=== PATIENT | female | born 1925 | race Caucasian/White ===

== ENCOUNTER 2016-05-27 11:09 | Emergency (ER) | payer MEDICARE, OTHER ==
[~2016-05-27] VITALS: Ht 157.5 cm; Wt 65.0 kg
[~2016-05-27 11:09] MED LIST: ACET325T45 PO; AMLO5TAB4 PO; ASPI-664 PO; CARI350T29 PO; DOCU-144 PO; EPIN5DRO OP; FURO40TA4 PO; GABA300C16 PO; METO-448 PO; OMEP20CA16 PO; TRAM50TA2 PO; ZOLP5TAB7 PO
[2016-05-27 11:13] VITALS: Ht 157.5 cm; Wt 65.0 kg
[2016-05-27] MEDS ORDERED: SOD CHLORIDE 0.9% 500 ML IV STA (11:22)
[2016-05-27 12:02] LABS: ADD SCAN DIFF NO
[2016-05-27 12:05] LABS: HEMATOCRIT 44.4 % (37.0-47.0); HEMOGLOBIN 14.1 g/dl (12.0-16.0); LYMPHOCYTES # 0.8 10^3/ul (0.8-2.9); LYMPHOCYTES % 18.8 % (15.0-51.0); MEAN CORPUSCULAR HEMOGLOBIN 30.5 pg (29.0-33.0); MEAN CORPUSCULAR HGB CONC 31.8 g/dl (32.0-37.0); MEAN CORPUSCULAR VOLUME 96.1 fl (82.0-101.0); MEAN PLATELET VOLUME 10.3 fl (7.4-10.4); MONOCYTE # 0.4 10^3/ul (0.3-0.9); MONOCYTES % 9.1 % (0.0-11.0); NEUTROPHIL # 2.9 10^3/ul (1.6-7.5); NEUTROPHILS % 71.6 % (39.0-77.0); PLATELET COUNT 107 10^3/UL (140-415); RED BLOOD COUNT 4.62 10^6/ul (4.20-5.40); RED CELL DISTRIBUTION WIDTH 12.3 % (11.5-14.5); WHITE BLOOD COUNT 4.1 10^3/ul (4.8-10.8)
[2016-05-27 12:22] LABS: POTASSIUM 3.8 mmol/L (3.5-5.1)
[2016-05-27 12:24] LABS: ALBUMIN/GLOBULIN RATIO 1.08; BILIRUBIN,INDIRECT 0.5 mg/dl (0-1.1); BILIRUBIN,TOTAL 0.5 mg/dl (0.2-1.3); CREATININE 0.68 mg/dl (0.44-1.00); TOTAL PROTEIN 7.7 g/dl (6.1-8.1)
[2016-05-27 12:25] LABS: CALCIUM 9.6 mg/dl (8.4-10.2)
[2016-05-27] MEDS ORDERED: IODIXANOL LOCM 100 ML BTL ONE (12:49)
[2016-05-27] MEDS ORDERED: SOD CHLORIDE 0.9% 100 ML ONE (12:49)
--- NOTE | 2016-05-27 13:27 | RADRPT ---
PROCEDURE: CT Abdomen and Pelvis with contrast. CLINICAL INDICATION: Fall, right-sided pain TECHNIQUE: CT of the abdomen and pelvis was performed on a multi-detector scanner following the un complicated IV administration of 100 cc of Visipaque 320. Coronal and sagittal images were reformat sophie from the axial data set. One or more of the following dose reduction techniques were used: auto mated exposure control, adjustment of the mA and/or kV according to patient size, use of iterative reconstruction technique. CTDI = 11.11 mGy. DLP = 579.58 mGy-cm. COMPARISON: None. FINDINGS: CT abdomen: There is trace right pleural fluid. The heart size is normal, without pericardial effusion. Dixon ry arterial calcifications are present. Liver demonstrates scattered small benign cysts. Cholelith iasis is noted without evidence for cholecystitis. Biliary tree, pancreas, spleen, adrenal glands a nd kidneys are unremarkable except for benign renal cysts. Large hiatal hernia is present. There is no abdominal aortic aneurysm or dissection. Aortic vascular calcifications are present. T here is no retroperitoneal lymphadenopathy. The nati hepatis region is clear. CT pelvis: There is no bowel obstruction, free intraperitoneal air or hemoperitoneum. Scattered colonic divert icula are noted without diverticulitis. There is no appendicitis or colitis. Urinary bladder is gr ossly unremarkable. Uterus is surgically absent. No pelvic mass, free fluid or lymphadenopathy is identified. Osteopenia is noted. The patient is status post bilateral hip replacement. 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 There is minimally displaced acute fracture of the right ninth rib laterally. There is chronic moderate compression deformity of T12. No osteolytic or osteoblastic lesion is identified. IMPRESSION: 1. Minimally displaced acute fracture of the right ninth rib laterally. 2. No other evidence of acute traumatic injury is seen. 3. Nonspecific small amount of low-density right pleural fluid is present. 4. Large hiatal hernia is noted. 5. 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 6. Cholelithiasis is noted without evidence for cholecystitis. RPTAT: PP .Gumaro De Los Santos MD, Date Time Electronically viewed and signed by .Gumaro De Los Santos MD, on 05/27/2016 13:27 .R/
--- NOTE | 2016-05-27 13:34 | ERD ---
ER Documentation Chief Complaint Date/Time DATE: 05/27/16 TIME: 13:30 Chief Complaint LEFT RIB PAIN AFTER A [facility] HPI This is an 89-year-old female who presents to the emergency room for evaluation of right-sided rib pain. The history is obtained from the patient's caregiver who is at bedside and states that this patient had a mechanical fall approximately 3 days ago where she hit the side of her body on the edge of a doorway. She had no head injury or loss of consciousness. The patient states that the pain is a sharp pain worse with trunk movement. She denies any shortness of breath, diaphoresis, nausea or vomiting associated with this. ROS All systems reviewed and are negative except as per history of present illness. Medications Home Meds Reported Medications Amlodipine Besylate* (Norvasc*) 5 Mg Tablet, 5 MG PO DAILY, TAB 06/29/14 Docusate Sodium* (Colace*) 100 Mg Capsule, 100 MG PO QHS, CAP 06/29/14 Zolpidem Tartrate* (Zolpidem Tartrate*) 5 Mg Tablet, 5 MG PO HS Y, TAB 06/29/14 Gabapentin* (Gabapentin*) 300 Mg Capsule, 300 MG PO QHS, CAP 06/29/14 Aspirin (Low Dose Aspirin) 81 Mg Tablet.dr, 81 MG PO DAILY 06/29/14 Tramadol HCl (Tramadol HCl) 50 Mg Tab, 50-100 MG PO Q6, TAB 06/29/14 Furosemide* (Furosemide*) 40 Mg Tablet, 40 MG PO DAILY, TAB 06/29/14 Metoprolol Tartrate* (Lopressor*) 25 Mg Tab, 25 MG PO BID, TAB 06/29/14 Carisoprodol* (Carisoprodol*) 350 Mg Tablet, 350 MG PO QID, TAB 06/29/14 Omeprazole* (Omeprazole*) 20 Mg Capsule.dr, 20 MG PO DAILY, CAP 06/29/14 Epinastine Hcl (Elestat) 5 Ml Drops, 1 DROP OP BID 06/29/14 Acetaminophen* (Acetaminophen*) 325 Mg Tablet, 650 MG PO Q4H Y for PAIN, TAB 06/29/14 Allergies Allergies: Coded Allergies: No Known Allergy (Unverified , 06/29/14) PMhx/Soc History of Surgery: No Anesthesia Reaction: No Hx Neurological Disorder: No Hx Respiratory Disorders: No Hx Cardiac Disorders: No Hx Psychiatric Problems: No Hx Miscellaneous Medical Probl: Yes Hx Alcohol Use: No Hx Substance Use: No Hx Tobacco Use: No Smoking Status: Never smoker Physical Exam Vitals Vital Signs Date Time Temp Pulse Resp B/P Pulse Ox O2 Delivery O2 Flow Rate FiO2 05/27/16 11:13 98.1 77 18 150/77 99 Physical Exam INITIAL VITAL SIGNS: Reviewed by me GENERAL: The patient is well developed and appropriate for usual state of health in no apparent distress HEENT: Pupils equal, round, and reactive to light. EOMI. There is no scleral icterus. NECK: C-spine is soft and supple, there is no meningismus. There is no cervical lymphadenopathy. LUNGS: Clear to auscultation bilaterally. There are no rales, wheezes or rhonchi. HEART: Regular rate and rhythm, no murmurs, clicks, rubs or gallops. ABDOMEN: Soft, non-tender, non-distended. There are bowel sounds in all four quadrants. No rebound or guarding. EXTREMITIES: There is no peripheral cyanosis or edema. No focal swelling or erythema. NEUROLOGICAL: The patient moves all four extremities with 5/5 strength. Cranial nerves II - XII are intact. Normal gait. Alert and oriented SKIN: There is no apparent rash or petechiae. Musculoskeletal: Tender to palpation of the right lateral chest wall, no paradoxical chest wall movement, no ecchymosis. HEME/LYMPHATIC: There is no evidence of excessive bruising or lymphedema. PSYCHIATRIC: The patient does not appear anxious or depressed. Result Diagram: 05/27/16 1143 05/27/16 1143 Results 24 hrs Laboratory Tests Test 05/27/16 11:43 White Blood Count 4.110^3/ul Red Blood Count 4.6210^6/ul Hemoglobin 14.1g/dl Hematocrit 44.4% Mean Corpuscular Volume 96.1fl Mean Corpuscular Hemoglobin 30.5pg Mean Corpuscular Hemoglobin Concent 31.8g/dl Red Cell Distribution Width 12.3% Platelet Count 91987^3/UL Mean Platelet Volume 10.3fl Neutrophils % 71.6% Lymphocytes % 18.8% Monocytes % 9.1% Eosinophils % 0.0% Basophils % 0.0% Nucleated Red Blood Cells % 0.0/100WBC Neutrophils # 2.910^3/ul Lymphocytes # 0.810^3/ul Monocytes # 0.410^3/ul Eosinophils # 0.010^3/ul Basophils # 0.010^3/ul Nucleated Red Blood Cells # 0.010^3/ul Sodium Level 140mmol/L Potassium Level 3.8mmol/L Chloride Level 102mmol/L Carbon Dioxide Level 26mmol/L Anion Gap 16 Blood Urea Nitrogen 13mg/dl Creatinine 0.68mg/dl Glucose Level 151mg/dl Calcium Level 9.6mg/dl Total Bilirubin 0.5mg/dl Direct Bilirubin 0.00mg/dl Indirect Bilirubin 0.5mg/dl Aspartate Amino Transf (AST/SGOT) 20IU/L Alanine Aminotransferase (ALT/SGPT) 11IU/L Alkaline Phosphatase 77IU/L Total Protein 7.7g/dl Albumin 4.0g/dl Globulin 3.70g/dl Albumin/Globulin Ratio 1.08 Lipase 56U/L Current Medications Medications (Trade) Dose Ordered Sig/Jaime Route PRN Reason Start Time Stop Time Status Last Admin Dose Admin Sodium Chloride (NS) 500 ml @ 500 mls/hr Q1H STAT IV 05/27/16 11:22 05/27/16 12:21 DC 05/27/16 12:16 IV Flush 10 ml 10 ml STK-MED ONCE .ROUTE 05/27/16 12:49 05/27/16 12:50 DC 05/27/16 13:11 Sodium Chloride (NS) 100 ml @ ud STK-MED ONCE .ROUTE 05/27/16 12:49 05/27/16 12:50 DC 05/27/16 13:12 Iodixanol (Visipaque Locm) 100 ml STK-MED ONCE .ROUTE 05/27/16 12:49 05/27/16 12:50 DC 05/27/16 13:12 Procedures/MDM CT abdomen pelvis with IV contrast: 1. Minimally displaced acute fracture of the right ninth rib laterally. 2. No other evidence of acute traumatic injury is seen. 3. Nonspecific small amount of low-density right pleural fluid is present. 4. Large hiatal hernia is noted. 5. 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 6. Cholelithiasis is noted without evidence for cholecystitis. This 89-year-old female presents to the emergency room for evaluation of right- sided rib pain. When I evaluated her she was tender on that side, she had no paradoxical chest wall movement. The patient recently took tramadol before coming to the emergency room, less than 30 minutes ago. She was hemodynamically stable and did not complain of chest pain. I did obtain a CT of the abdomen pelvis with contrast to rule out any organ injury as the patient is a frail-appearing elderly female. CT does reveal minimally displaced acute fracture of the right ninth rib laterally. This is consistent with the patient' s history and presentation. The patient was given Motrin in the emergency room , will be discharged home with a prescription for Motrin and instructions to take tramadol only as needed for pain. Departure Diagnosis: Primary Impression: Fracture of rib of right side Additional Impression: Chest wall contusion Condition: Stable JAGDISH VARMA DO May 27, 2016 13:34
[2016-05-27] MEDS ORDERED: IBUP400T22 PO (13:35)
[2016-05-27] MEDS ORDERED: IBUPROFEN 200 MG TAB PO ONE (14:00)
== END 2016-05-27 14:01 | disposition home or self-care (01) ==
LOC: E/R 11:09
DX: S22.31XA Fracture of one rib, right side, initial encounter for closed fracture (principal); S20.211A Contusion of right front wall of thorax, initial encounter; R40.2142 Coma scale, eyes open, spontaneous, at arrival to emergency department; R40.2252 Coma scale, best verbal response, oriented, at arrival to emergency department; R40.2362 Coma scale, best motor response, obeys commands, at arrival to emergency department; W18.09XA Striking against other object with subsequent fall, initial encounter; Y92.9 Unspecified place or not applicable; Z79.82 Long term (current) use of aspirin
CPT/HCPCS: 36415; 74177; 80053; 83690; 85025; 99285; J7040; Q9967

== ENCOUNTER 2016-07-15 01:35 | Inpatient (IN) | payer MEDICARE, OTHER ==
[~2016-07-15] VITALS: Ht 175.3 cm; Wt 60.0 kg
[~2016-07-15 01:35] MED LIST changes: +IBUP400T22 PO
[2016-07-15 01:41] VITALS: Ht 175.3 cm; Wt 60.0 kg
[2016-07-15] MEDS ORDERED: ONDANSETRON (ODT) 4 MG TAB ODT STA ×2 (02:22→06:15)
[2016-07-15] MEDS ORDERED: morphine 10 MG INJ IM ONE ×2 (02:30→06:30)
[2016-07-15] MEDS ORDERED: HYDR-906 PO (03:18)
--- NOTE | 2016-07-15 03:24 | ERD ---
ER Documentation Chief Complaint Date/Time DATE: 07/15/16 TIME: 03:22 Chief Complaint left shoulder pain r/t ground level fall (CHON DEL CID) Chief Complaint Syncope (CK CARDONA DO) HPI This is a very pleasant 89-year-old female with left shoulder pain status post ground-level fall. It was mechanical fall, no head trauma. No loss of consciousness. No nausea no vomiting. No focal neurological complaints. No other current issues. Patient complains of pain in the left shoulder. Obvious deformity noted. Normal sensation and pulses (CHON DEL CID) This is a 89-year-old female who was seen last night by Dr. del cid in for a fall with a proximal humerus fracture. The patient was supposed to be seen by social work associate before being discharged home. After social work associate evaluation I was approached because the patient is very weak and cannot even stand and ambulate. She normally ambulates on her own and is a very active woman. She apparently had a syncopal episode after I questioned her. Patient states that she remembers getting up last night within falling but does not recall the feeling of falling. She does remember waking up on the floor with pain in her left face and pain in her left shoulder. The patient's thinks that she passed out and had a loss of consciousness. There were attempts to get the patient out of bed while here in the ER and she is unable to stand on her own whatsoever. I then did a workup for syncope and will admit the patient. Patient does not have any recollection of feeling dizzy. The patient says she has left shoulder pain is sharp and worse with movement better with rest. Denies any shortness of breath chest pain headache recent illness abdominal pain vomiting diarrhea or focal neurological complete (CK CARDONA DO) ROS All systems reviewed and are negative except as per history of present illness. (CHON DEL CID) 10 point review of systems been reviewed is negative except as mentioned in the HPI (CK CARDONA DO) Medications Home Meds Active Scripts Hydrocodone/Acetaminophen (Kramer 5-325 Tablet) 1 Each Tablet, 1 TAB PO Q6H Y for PAIN, #14 TAB Prov:CHON DEL CID 07/15/16 Ibuprofen* (Motrin*) 400 Mg Tab, 400 MG PO Q8, #21 TAB Prov:JAGDISH VARMA DO 05/27/16 Reported Medications Amlodipine Besylate* (Norvasc*) 5 Mg Tablet, 5 MG PO DAILY, TAB 06/29/14 Docusate Sodium* (Colace*) 100 Mg Capsule, 100 MG PO QHS, CAP 06/29/14 Zolpidem Tartrate* (Zolpidem Tartrate*) 5 Mg Tablet, 5 MG PO HS Y, TAB 06/29/14 Gabapentin* (Gabapentin*) 300 Mg Capsule, 300 MG PO QHS, CAP 06/29/14 Aspirin (Low Dose Aspirin) 81 Mg Tablet.dr, 81 MG PO DAILY 06/29/14 Tramadol HCl (Tramadol HCl) 50 Mg Tab, 50-100 MG PO Q6, TAB 06/29/14 Furosemide* (Furosemide*) 40 Mg Tablet, 40 MG PO DAILY, TAB 06/29/14 Metoprolol Tartrate* (Lopressor*) 25 Mg Tab, 25 MG PO BID, TAB 06/29/14 Carisoprodol* (Carisoprodol*) 350 Mg Tablet, 350 MG PO QID, TAB 06/29/14 Omeprazole* (Omeprazole*) 20 Mg Capsule.dr, 20 MG PO DAILY, CAP 06/29/14 Epinastine Hcl (Elestat) 5 Ml Drops, 1 DROP OP BID 06/29/14 Acetaminophen* (Acetaminophen*) 325 Mg Tablet, 650 MG PO Q4H Y for PAIN, TAB 06/29/14 Allergies Allergies: Coded Allergies: No Known Allergy (Unverified , 07/15/16) PMhx/Soc Medical and Surgical Hx: pt denies Medical Hx, pt denies Surgical Hx History of Surgery: No Anesthesia Reaction: No Hx Neurological Disorder: No Hx Respiratory Disorders: No Hx Cardiac Disorders: No Hx Psychiatric Problems: No Hx Miscellaneous Medical Probl: Yes Hx Alcohol Use: No Hx Substance Use: No Hx Tobacco Use: No Smoking Status: Never smoker (CHON DEL CID) FmHx Family History: No coronary disease (CK CARDONA DO) Physical Exam Vitals Vital Signs Date Time Temp Pulse Resp B/P Pulse Ox O2 Delivery O2 Flow Rate FiO2 07/15/16 10:22 74 16 121/78 100 Room Air 07/15/16 07:21 64 16 123/78 100 Room Air 07/15/16 06:13 68 16 136/62 100 Room Air 07/15/16 05:32 78 13 124/54 95 Room Air 07/15/16 01:41 97.3 74 18 131/84 99 (CK CARDONA DO) Physical Exam Const: [] Head: Atraumatic Eyes: Normal Conjunctiva ENT: Normal External Ears, Nose and Mouth. Neck: Full range of motion..~ No meningismus. Resp: Clear to auscultation bilaterally Cardio: Regular rate and rhythm, no murmurs Abd: Soft, non tender, non distended. Normal bowel sounds Skin: No petechiae or rashes Back: No midline or flank tenderness Ext: Swelling noted in left shoulder region Neur: Awake and alert Psych: Normal Mood and Affect (CHON DEL CID) Physical Exam Const: Well-developed, well-nourished Head: Atraumatic, normocephalic Eyes: Normal Conjunctiva, PERRLA, EOMI, normal sclera, no nystagmus ENT: Normal External Ears, Nose and Mouth, moist mucus membranes. Neck: Full range of motion. No meningismus, no lymphadenopathy. Resp: Clear to auscultation bilaterally, no wheezing, rhonchi, rales Cardio: Regular rate and rhythm, no murmurs, S1 S2 present Abd: Soft, non tender x 4, non distended. Normal bowel sounds, no guarding or rebound, no pulsitile abdominal masses or bruits Skin: No petechiae or rashes, no ecchymosis , no maculopapular rash Back: No midline or flank tenderness Ext: No cyanosis, or edema, FROM x 3 pain in the proximal shoulder with sling intact, normal inspection, neurovascularly intact x 4 Neur: Awake and alert, STR 5/5 x 4, sensation intact x 4, no focal findings, cerebellum intact Psych: Normal Mood and Affect (CK CARDONA DO) Result Diagram: 07/15/16 1225 07/15/16 1225 Results 24 hrs Laboratory Tests Test 07/15/16 12:25 White Blood Count 6.810^3/ul Red Blood Count 4.4910^6/ul Hemoglobin 13.5g/dl Hematocrit 42.5% Mean Corpuscular Volume 94.7fl Mean Corpuscular Hemoglobin 30.1pg Mean Corpuscular Hemoglobin Concent 31.8g/dl Red Cell Distribution Width 12.5% Platelet Count 55175^3/UL Mean Platelet Volume 10.1fl Neutrophils % 75.8% Lymphocytes % 13.9% Monocytes % 10.0% Eosinophils % 0.0% Basophils % 0.0% Nucleated Red Blood Cells % 0.0/100WBC Neutrophils # 5.210^3/ul Lymphocytes # 1.010^3/ul Monocytes # 0.710^3/ul Eosinophils # 0.010^3/ul Basophils # 0.010^3/ul Nucleated Red Blood Cells # 0.010^3/ul Sodium Level 141mmol/L Potassium Level 3.7mmol/L Chloride Level 101mmol/L Carbon Dioxide Level 30mmol/L Anion Gap 14 Blood Urea Nitrogen 16mg/dl Creatinine 0.52mg/dl Glucose Level 106mg/dl Calcium Level 9.4mg/dl Troponin I < 0.012ng/ml Current Medications Medications (Trade) Dose Ordered Sig/Jaime Route PRN Reason Start Time Stop Time Status Last Admin Dose Admin Morphine Sulfate (morphine) 4 mg ONCE ONCE IM 07/15/16 02:30 07/15/16 02:31 DC 07/15/16 02:27 Ondansetron HCl (Zofran Odt) 4 mg ONCE STAT ODT 07/15/16 02:22 07/15/16 02:24 DC 07/15/16 02:26 Morphine Sulfate (morphine) 4 mg ONCE ONCE IM 07/15/16 06:30 07/15/16 06:31 DC 07/15/16 06:27 Ondansetron HCl 4 mg 4 mg ONCE STAT ODT 07/15/16 06:15 07/15/16 06:17 DC 07/15/16 06:27 Sodium Chloride (NS) 500 ml @ 500 mls/hr Q1H STAT IV 07/15/16 12:01 07/15/16 13:00 DC 07/15/16 12:37 (CK CARDONA DO) Procedures/MDM X-ray Shoulder 3V Interpreted by me: Bones: Obvious fracture noted at proximal humerus Joints: [No dislocation] Foreign body: [None] Medical decision-makin year female with a shoulder fracture. She is a pleasant arm sling patient be discharged home to follow-up with outpatient orthopedics. Neurovascularly intact (CHON DEL CID) EKG: Rate/Rhythm: Normal sinus rhythm, right axis deviation QRS, ST, QT: NORMAL AR, QRS, QT] Impression: NORMAL EKG PROCEDURE: CT Brain without contrast. CLINICAL INDICATION: Fall. Head trauma. TECHNIQUE: Axial images from the skull base through the vertex without IV contrast. Multiplanar reformatted images were made. Images were reviewed on a PACS workstation. The CTDIvol is 44.19 mGy and the DLP is 810.25 mGycm. One or more of the following dose reduction techniques were used: automated exposure control, adjustment of the mA and/or kV according to patient size, or use of iterative reconstruction technique. COMPARISON: None. FINDINGS: There is atrophy and chronic microvascular ischemic change. There is no evidence for acute territorial infarction or intracranial hemorrhage. No mass or midline shift is seen. No intra or extra-axial fluid collection is seen. Ex vacuo dilatation of the ventricles is seen. Intracranial vascular calcification is seen. A small amount of cerumen is present in both external auditory canals. The visualized paranasal sinuses and mastoids are essentially clear. Both globes are elongated which may be due to coloboma or staphloma. IMPRESSION: Atrophy and chronic microvascular ischemic changes. No definite acute abnormality.. Bilateral orbital globe coloboma or staphloma, chronic. RPTAT: HLBE Physician Ziggy Date Time Electronically viewed and signed by Sabrina Guerrero Physician on 07/15/2016 03 :34 LE/ CC: CHON DEL CID PROCEDURE: XR Chest. CLINICAL INDICATION: Syncope. TECHNIQUE: Single frontal view of the chest was obtained. COMPARISON: CT abdomen pelvis 05/27/2016. FINDINGS: The soft tissues are normal. There is a levoscoliosis of the lower thoracic spine with degenerative changes in the thoracic and upper lumbar spine. The heart is enlarged. The cardiomediastinal silhouette and hilar structures are normal. The pulmonary vasculature is normal. There are vascular calcifications in the ectatic left-sided aorta. There is increased density over the medial aspect of the left diaphragm. A hiatal hernia or atelectasis could be considered. There is a monitoring electrode partially obscuring this area. There is some atelectasis in the left costophrenic angle. Right costophrenic angle is normal. There is a transverse fracture deformity to the neck of the proximal left humerus. IMPRESSION: 1. There is a transverse fracture of unclear chronicity to the neck of the proximal left humerus. Clinical correlation needed. 2. There is a large hiatal hernia projecting above the left diaphragm. 3. Cardiomegaly. 4. Atherosclerotic vascular disease. 5. 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 6. No evidence of active cardiopulmonary disease in the chest. RPTAT:AAJJ Physician Annette Date Time Electronically viewed and signed by Clyde Cisneros Physician on 07/15/2016 13:00 JM/ CC: CK CARDONA DO ROCEDURE: XR left shoulder. CLINICAL INDICATION: fall TECHNIQUE: 3 views of the left shoulder were performed. COMPARISON: None. FINDINGS: Bone mineralization is decreased. Both submitted views are fairly oblique. There is a slightly comminuted fracture of the humeral neck with 1.2 cm of anterior displacement of the distal fragment. The humeral head is ruled posteriorly. There is not a definite greater tuberosity fracture seen but positioning is fairly limited. There is 6 mm of superior subluxation of the distal clavicle which could be due to acromioclavicular separation. There is not definite luc dislocation. IMPRESSION: Study limited by portable technique and positioning. Displaced humeral neck fracture without clearly visualized greater tuberosity fracture. CT could be performed if no true AP views able to be performed. Possible grade II acromioclavicular separation. RPTAT: HLBE Sabrina Guerrero, Physician Date Time Electronically viewed and signed by Sabrina Guerrero, Physician on 07/15/2016 03 :27 LE/ CC: CHON DEL CID We will admit the patient to Dr. Bernal for observation for syncope (CK CARDONA DO) Departure Diagnosis: Primary Impression: Syncope Syncope type: unspecified Qualified Code: R55 - Syncope, unspecified syncope type Additional Impression: Proximal humerus fracture Encounter type: initial encounter Fracture type: closed Fracture morphology : unspecified fracture morphology Laterality: left Qualified Code: S42.202A - Closed fracture of proximal end of left humerus, unspecified fracture morphology, initial encounter Condition: Stable Patient Instructions: Fracture, Shoulder Referrals: TACOS BERNAL MD (PCP) CHON DEL CID Jul 15, 2016 03:24 CK CARDONA DO Jul 15, 2016 14:36
--- NOTE | 2016-07-15 03:27 | RADRPT ---
PROCEDURE: XR left shoulder. CLINICAL INDICATION: fall TECHNIQUE: 3 views of the left shoulder were performed. COMPARISON: None. FINDINGS: Bone mineralization is decreased. Both submitted views are fairly oblique. There is a slightly com minuted fracture of the humeral neck with 1.2 cm of anterior displacement of the distal fragment. T he humeral head is ruled posteriorly. There is not a definite greater tuberosity fracture seen but positioning is fairly limited. There is 6 mm of superior subluxation of the distal clavicle which c ould be due to acromioclavicular separation. There is not definite luc dislocation. IMPRESSION: Study limited by portable technique and positioning. Displaced humeral neck fracture without clearl y visualized greater tuberosity fracture. CT could be performed if no true AP views able to be perf ormed. Possible grade II acromioclavicular separation. RPTAT: HLBE Physician Ziggy Date Time Electronically viewed and signed by Sabrina Guerrero Physician on 07/15/2016 03:27 JOSE/
--- NOTE | 2016-07-15 03:35 | RADRPT ---
PROCEDURE: CT Brain without contrast. CLINICAL INDICATION: Fall. Head trauma. TECHNIQUE: Axial images from the skull base through the vertex without IV contrast. Multiplanar r eformatted images were made. Images were reviewed on a PACS workstation. The CTDIvol is 44.19 mGy and the DLP is 810.25 mGycm. One or more of the following dose reduction techniques were used: auto mated exposure control, adjustment of the mA and/or kV according to patient size, or use of iterativ e reconstruction technique. COMPARISON: None. FINDINGS: There is atrophy and chronic microvascular ischemic change. There is no evidence for acute territor ial infarction or intracranial hemorrhage. No mass or midline shift is seen. No intra or extra-axi al fluid collection is seen. Ex vacuo dilatation of the ventricles is seen. Intracranial vascular calcification is seen. A small amount of cerumen is present in both external auditory canals. The visualized paranasal sinuses and mastoids are essentially clear. Both globes are elongated which may be due to coloboma or staphloma. IMPRESSION: Atrophy and chronic microvascular ischemic changes. No definite acute abnormality.. 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 RPTAT: HLBE Physician Ziggy Date Time Electronically viewed and signed by Physician Ziggy on 07/15/2016 03:34 LE/
[2016-07-15] MEDS ORDERED: SOD CHLORIDE 0.9% 500 ML IV STA (12:01)
[2016-07-15 12:37] LABS: ADD SCAN DIFF NO
[2016-07-15 12:44] LABS: HEMATOCRIT 42.5 % (37.0-47.0); HEMOGLOBIN 13.5 g/dl (12.0-16.0); LYMPHOCYTES % 13.9 % (15.0-51.0); MEAN CORPUSCULAR HEMOGLOBIN 30.1 pg (29.0-33.0); MEAN CORPUSCULAR HGB CONC 31.8 g/dl (32.0-37.0); MEAN CORPUSCULAR VOLUME 94.7 fl (82.0-101.0); MEAN PLATELET VOLUME 10.1 fl (7.4-10.4); MONOCYTE # 0.7 10^3/ul (0.3-0.9); NEUTROPHIL # 5.2 10^3/ul (1.6-7.5); NEUTROPHILS % 75.8 % (39.0-77.0); PLATELET COUNT 128 10^3/UL (140-415); RED BLOOD COUNT 4.49 10^6/ul (4.20-5.40); RED CELL DISTRIBUTION WIDTH 12.5 % (11.5-14.5); WHITE BLOOD COUNT 6.8 10^3/ul (4.8-10.8)
--- NOTE | 2016-07-15 13:00 | RADRPT ---
PROCEDURE: XR Chest. CLINICAL INDICATION: Syncope. TECHNIQUE: Single frontal view of the chest was obtained. COMPARISON: CT abdomen pelvis 05/27/2016. FINDINGS: The soft tissues are normal. There is a levoscoliosis of the lower thoracic spine with degenerative changes in the thoracic and upper lumbar spine. The heart is enlarged. The cardiomediastinal silh ouette and hilar structures are normal. The pulmonary vasculature is normal. There are vascular enio cifications in the ectatic left-sided aorta. There is increased density over the medial aspect of th e left diaphragm. A hiatal hernia or atelectasis could be considered. There is a monitoring electr ode partially obscuring this area. There is some atelectasis in the left costophrenic angle. Rig ht costophrenic angle is normal. There is a transverse fracture deformity to the neck of the proxim al left humerus. IMPRESSION: 1. There is a transverse fracture of unclear chronicity to the neck of the proximal left humerus. C linical correlation needed. 2. There is a large hiatal hernia projecting above the left diaphragm. 3. Cardiomegaly. 4. Atherosclerotic vascular disease. 5. 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 6. No evidence of active cardiopulmonary disease in the chest. RPTAT:AAJJ Physician Annette Date Time Electronically viewed and signed by Clyde Cisneros Physician on 07/15/2016 13:00 LAVELLE/
[2016-07-15 13:04] LABS: ANION GAP 14 (8-16); BLOOD UREA NITROGEN 16 mg/dl (7-20); CALCIUM 9.4 mg/dl (8.4-10.2); CARBON DIOXIDE 30 mmol/L (21-31); CHLORIDE 101 mmol/L (97-110); CREATININE 0.52 mg/dl (0.44-1.00); GLUCOSE 106 mg/dl (70-220); POTASSIUM 3.7 mmol/L (3.5-5.1); SODIUM 141 mmol/L (135-144)
[2016-07-15 13:16] LABS: TROPONIN-I < 0.012 ng/ml (0.00-0.12)
[2016-07-15] MEDS ORDERED: SOD CHLORIDE 0.9% 1,000 ML IV SCH (14:41)
[2016-07-15] MEDS ORDERED: ACETAMINOPHEN 325 MG TAB PO PRN (15:00)
[2016-07-15] MEDS ORDERED: ONDANSETRON 4 MG INJ IV PRN (15:00)
[2016-07-15] MEDS ORDERED: ASPIRIN 325 MG TAB PO ONE (17:30)
[2016-07-15] MEDS ORDERED: ZOLPIDEM 5 MG TAB PO PRN (17:30)
[2016-07-15] MEDS ORDERED: NACL 0.9% 3 ML SYG IV SCH (17:30)
[2016-07-15] MEDS ORDERED: morphine 2 MG INJ IV PRN (17:30)
--- NOTE | 2016-07-15 18:22 | PREOPHP ---
DATE OF ADMISSION: 07/15/2016 REASON FOR ADMISSION: Syncope with fall and fractured left humerus. HISTORY OF PRESENT ILLNESS: This 89-year-old female who was well known to me, was in her usual stat e of health until last evening when she had a ground level fall. She suffered an injury to her left humerus. The patient initially did not mention that she passed out; however, it seems that she did have a syncopal episode and lost consciousness. The patient was brought to [facility] Emergency Room for further evaluation and treatment. The patient is somewhat confused. Initi ally she told me that she was injured 2 weeks ago. Then, her railway station manager arrived and helped with the current history. The railway station manager substantiated that the patient did fall in the middle of the night. The patient now says she may have hit her head. The patient is unable to move her left foot. She also has some weakness in her left arm. The weakness in the left arm is a little difficult to evalu ate because of the left humerus fracture and that she is having pain in the left arm and humerus are a. CURRENT MEDICATIONS: The patient is currently taking the following medications: [place] 5/325 every 6 hours for pain, amoxicillin for dental prophylaxis, Tylenol p.r.n. pain [place] 1 drop in each eye twice a day, Luteal one tablet daily, aspirin 81 mg a day, Tramadol 50 mg every 6 hours as needed f or pain, Amlodipine 5 mg once a day for blood pressure, Protonix 40 mg a day for GERD. Colace 100 m g twice a day, Metoprolol tartrate 25 mg twice a day, Valsartan 80 mg once a day, Gabapentin 300 mg orally at bedtime Valsartan 80 mg once a day, Lidoderm patch applied to back once a day. PAST MEDICAL HISTORY: Remarkable for hypertension, hyperlipidemia, osteoarthritis diffusely, gastro esophageal reflux disease, insomnia, degenerative disk disease and degenerative joint disease. ALLERGIES: NOVOCAIN. PHYSICAL EXAMINATION: GENERAL: At this time he patient is quite weak. CARDIORESPIRATORY: Denies any chest pain or shortness of breath. She does not have a cough. GASTROINTESTINAL: No nausea, vomiting, or diarrhea. GENITOURINARY: Negative. NEUROMUSCULAR: She is having some difficulty moving her left foot and her left arm. VITAL SIGNS: Her blood pressure is 108/58, pulse is 79, respirations 16, temperature 97.3, O2 satur ation 100% on room air. HEENT: Head normocephalic. Eyes: There seems to be some weakness with lateral gaze in the left ey e. NOSE AND MOUTH: Normal. NECK: Supple. No neck vein distention. LUNGS: Clear to auscultation. HEART: Regular rhythm. No murmurs, gallops or rubs. ABDOMEN: Soft, nontender, no masses or megaly. EXTREMITIES: No peripheral edema. NEUROLOGIC: She does have some weakness of the left eye to lateral gaze. She is also having some w eakness in the left leg, especially the foot and in the left hand and arm. Her left arm is in a sli ng. IMPRESSION: 1. This patient presents now with a mechanical fall at home and a fracture of the left humeral neck . She is more confused than usual. 2. History of hypertension. 3. Chronic back pain. 4. Vertebral compression fractures. 5. Age-related osteoporosis. 6. Chronic edema. 7. Insomnia. PLAN: 1. Patient will be admitted to the telemetry floor. 2. Neurologic evaluation. 3. Continue her current pain medicines for now. She obviously will need further workup of possible stroke. 4. Check labs in the morning. 5. IV fluids. Dictated By: TACOS BERNAL MD, ND/JOSEFINA Conf#: [id number] DID#: [id number]
[2016-07-15 19:09] VITALS: TEMP 97.5
[2016-07-15 19:39] VITALS: BP 145/67; PULSE 99
[2016-07-15 19:40] VITALS: PULSE 100
[2016-07-15] MEDS: 1/2 NS + KCL 20 MEQ 1,000 ML IV SCH (19:44)
[2016-07-15 20:01] VITALS: PULSE 95
[2016-07-15] MEDS: GABAPENTIN 300 MG CAP PO SCH (20:13)
[2016-07-15] MEDS: traMADol 50 MG TAB PO SCH (20:13)
[2016-07-15] MEDS: DOCUSATE SODIUM 100 MG CAP PO SCH (20:14)
[2016-07-15] MEDS: ONDANSETRON 4 MG INJ IV PRN (20:14)
[2016-07-15] MEDS: METOPROLOL 25 MG TAB PO SCH (20:14)
[2016-07-16] VITALS (13 sets, daily range): BP systolic 114–169; BP diastolic 55–89; PULSE 62–100; RESP 18–20
[2016-07-16] MEDS: traMADol 50 MG TAB PO SCH ×6 (01:13→23:55)
[2016-07-16] MEDS: 1/2 NS + KCL 20 MEQ 1,000 ML IV SCH ×2 (05:01→18:09)
[2016-07-16] MEDS: PANTOPRAZOLE (EC) 40 MG TAB PO SCH (05:58)
[2016-07-16 07:35] LABS: ADD SCAN DIFF NO
[2016-07-16 07:44] LABS: HEMATOCRIT 39.3 % (37.0-47.0); HEMOGLOBIN 12.7 g/dl (12.0-16.0); MEAN CORPUSCULAR HEMOGLOBIN 30.4 pg (29.0-33.0); MEAN CORPUSCULAR HGB CONC 32.3 g/dl (32.0-37.0); MEAN PLATELET VOLUME 10.5 fl (7.4-10.4); MONOCYTE # 0.7 10^3/ul (0.3-0.9); NEUTROPHIL # 4.1 10^3/ul (1.6-7.5); NEUTROPHILS % 70.7 % (39.0-77.0); PLATELET COUNT 136 10^3/UL (140-415); RED BLOOD COUNT 4.18 10^6/ul (4.20-5.40); RED CELL DISTRIBUTION WIDTH 12.5 % (11.5-14.5); WHITE BLOOD COUNT 5.8 10^3/ul (4.8-10.8)
[2016-07-16 08:04] LABS: ALBUMIN 4.3 g/dl (3.3-4.9); ALBUMIN/GLOBULIN RATIO 1.53; BILIRUBIN,INDIRECT 1.3 mg/dl (0-1.1); BILIRUBIN,TOTAL 1.3 mg/dl (0.2-1.3); CALCIUM 9.1 mg/dl (8.4-10.2); CREATININE 0.58 mg/dl (0.44-1.00); MAGNESIUM 1.9 mg/dl (1.7-2.5); PHOSPHORUS 3.2 mg/dl (2.5-4.9); POTASSIUM 3.9 mmol/L (3.5-5.1); TOTAL PROTEIN 7.1 g/dl (6.1-8.1)
--- NOTE | 2016-07-16 08:48 | CONS ---
Date/Time of Note Date/Time of Note DATE: 07/16/16 TIME: 08:43 Assessment/Plan Assessment/Plan Chief Complaint/Hosp Course 1. Syncope 2. Fracture of left proximal humerus, will have orthopedic consultation. 3. Debility 4. Vital signs are stable on current regimen. 5. Neurology consultation 6. Hypertension, BP is elevated today. Will restart amlodipine. Problems: Consultation Date/Type/Reason Admit Date/Time Jul 15, 2016 at 14:41 Initial Consult Date 24 HR Interval Summary Free Text/Dictation She complains of left shoulder pain where she has a fracture. Exam/Review of Systems Vital Signs Vitals Vital Signs Date Time Temp Pulse Resp B/P Pulse Ox O2 Delivery O2 Flow Rate FiO2 07/16/16 08:00 94 07/16/16 07:17 97.6 18 169/89 92 07/15/16 19:39 Room Air Intake and Output 07/15/16 07/15/16 07/16/16 14:59 22:59 06:59 Intake Total 300 ml Balance 300 ml Exam Constitutional: alert, frail, oriented Psych: no complaints Respiratory: clear to auscultation, normal air movement Gastrointestinal: soft Musculoskeletal: nl extremities to inspection Results Result Diagram: 07/16/16 0557 07/16/16 0557 Results 24 hrs Laboratory Tests Test 07/15/16 12:25 07/16/16 05:57 White Blood Count 6.8 # 5.8 Red Blood Count 4.49 4.18 L Hemoglobin 13.5 12.7 Hematocrit 42.5 39.3 Mean Corpuscular Volume 94.7 94.0 Mean Corpuscular Hemoglobin 30.1 30.4 Mean Corpuscular Hemoglobin Concent 31.8 L 32.3 Red Cell Distribution Width 12.5 12.5 Platelet Count 128 L 136 L Mean Platelet Volume 10.1 10.5 H Neutrophils % 75.8 70.7 Lymphocytes % 13.9 L 17.0 Monocytes % 10.0 12.0 H Eosinophils % 0.0 0.0 Basophils % 0.0 0.0 Nucleated Red Blood Cells % 0.0 0.0 Neutrophils # 5.2 4.1 Lymphocytes # 1.0 1.0 Monocytes # 0.7 0.7 Eosinophils # 0.0 0.0 Basophils # 0.0 0.0 Nucleated Red Blood Cells # 0.0 0.0 Sodium Level 141 140 Potassium Level 3.7 3.9 Chloride Level 101 105 Carbon Dioxide Level 30 29 Anion Gap 14 10 Blood Urea Nitrogen 16 15 Creatinine 0.52 0.58 Glucose Level 106 94 Calcium Level 9.4 9.1 Troponin I < 0.012 Phosphorus Level 3.2 Magnesium Level 1.9 Total Bilirubin 1.3 Direct Bilirubin 0.00 Indirect Bilirubin 1.3 H Aspartate Amino Transf (AST/SGOT) 26 Alanine Aminotransferase (ALT/SGPT) 21 Alkaline Phosphatase 81 Total Protein 7.1 Albumin 4.3 Globulin 2.80 Albumin/Globulin Ratio 1.53 Medications Medications Current Medications Acetaminophen (Tylenol Tab) 650 mg Q4H PRN PO PAIN; Start 07/15/16 at 17:30 Aspirin (Halfprin) 81 mg DAILY PO ; Start 07/16/16 at 09:00 Docusate Sodium (Colace) 100 mg QHS PO Last administered on 07/15/16 20:14; Admin Dose 100 MG; Start 07/15/16 at 21:00 Gabapentin (Neurontin) 300 mg QHS PO Last administered on 07/15/16 20:13; Admin Dose 300 MG; Start 07/15/16 at 21:00 Acetaminophen/ Hydrocodone Bitart ([place] (5/325)) 1 tab Q6H PRN PO PAIN; Start 07/15/16 at 17:30 Metoprolol Tartrate (Lopressor) 25 mg BID PO Last administered on 07/15/16 20: 14; Admin Dose 25 MG; Start 07/15/16 at 21:00 Tramadol HCl (Ultram) 50 mg Q6 PO Last administered on 07/16/16 05:58; Admin Dose 50 MG; Start 07/15/16 at 18:00 Zolpidem Tartrate (Ambien) 5 mg HS PRN PO PAIN LEVEL 6-10; Start 07/15/16 at 17: 30 Miscellaneous Information 1 drop BID OP ; Start 07/15/16 at 21:00; Status UNV Ondansetron HCl 4 mg 4 mg Q6H PRN IV NAUSEA AND/OR VOMITING Last administered on 07/15/16 20:14; Admin Dose 4 MG; Start 07/15/16 at 17:30 Potassium Chloride/Sodium Chloride (1/2 NS + KCl 20 Meq) 1,000 ml @ 80 mls/hr [id number] IV ; Start 07/15/16 at 17:30 Pantoprazole (Protonix Tab) 40 mg DAILY@06 PO Last administered on 07/16/16t 05: 58; Admin Dose 40 MG; Start 07/16/16 at 06:00 TACOS BERNAL MD Jul 16, 2016 08:48
[2016-07-16] MEDS ORDERED: NON-FORMULARY/PATIENT OWN MED (Omeprazole* 20 MG) PO SCH (09:00)
[2016-07-16] MEDS ORDERED: AMLODIPINE 5 MG TAB PO SCH (09:00)
[2016-07-16] MEDS: METOPROLOL 25 MG TAB PO SCH ×2 (09:03→20:57)
[2016-07-16] MEDS: ASPIRIN (EC) 81 MG TAB PO SCH (09:03)
[2016-07-16] MEDS: AMLODIPINE 5 MG TAB PO SCH (09:17)
[2016-07-16 11:06] LABS: INR 1.11; PROTIME 14.3 Sec (12.2-14.2); PT RATIO 1.1
[2016-07-16 11:07] LABS: PARTIAL THROMBOPLASTIN TIME 29.7 Sec (25.0-35.0)
[2016-07-16] MEDS: [UNRECOGNIZED DRUG - REMARK] XX SCH ×2 (12:00→17:00)
[2016-07-16 14:57] LABS: ADD UMIC YES; UR BILIRUBIN (Dip) NEGATIVE (NEGATIVE); UR BLOOD (Dip) TRACE (NEGATIVE); UR COLOR YELLOW (YELLOW); UR GLUCOSE (Dip) NEGATIVE (NEGATIVE); UR KETONES (Dip) NEGATIVE (NEGATIVE); UR LEUKOCYTE ESTERASE (Dip) NEGATIVE (NEGATIVE); UR NITRITE (Dip) NEGATIVE (NEGATIVE); UR TOTAL PROTEIN (Dip) NEGATIVE (NEGATIVE); UR UROBILINOGEN (Dip) 1.0 E.U./dL (0.1-1.0)
[2016-07-16 15:25] LABS: UR CLARITY HAZY (CLEAR)
[2016-07-16 15:32] LABS: UR BACTERIA FEW; UR TRANSITIONAL EPI CELL MODERATE
[2016-07-16] MEDS: HYDROCODONE/APAP (5/325) TAB PO PRN (15:54)
[2016-07-16] MEDS: GABAPENTIN 300 MG CAP PO SCH (20:56)
[2016-07-16] MEDS: DOCUSATE SODIUM 100 MG CAP PO SCH (20:56)
--- NOTE | 2016-07-16 22:29 | CONS ---
DATE OF ADMISSION: 07/15/2016 DATE OF CONSULTATION: 07/16/2016 TYPE OF CONSULTATION: Neurology Thank you, Dr. Flores, for your kind referral for evaluation of fall. HISTORY OF PRESENT ILLNESS: The patient is an 89-year-old lady, who suffered a ground level fall and broke her left humeral neck. According to history and physical examination note, the patient fell in the middle of the night. On examination by primary doctor, left-sided weakness was noticed, as well as limited abduction of the left side. PAST MEDICAL HISTORY: Remarkable for hypertension, dyslipidemia, osteoarthritis , GERD, insomnia, degenerative disk disease. The patient has history of bilateral legal blindness. MEDICATIONS: Patient is on: 1. [place]. 2. Aspirin. 3. Tramadol. 4. Amlodipine. 5. Protonix. 6. Colace. 7. Metoprolol. 8. Losartan. 9. Gabapentin. 10. Lidoderm patch. ALLERGIES: IS ALLERGIC TO NOVOCAIN, ACCORDING TO H AND P. PAST SURGICAL HISTORY: She has a history of vertebral fractures. CT scan of the head shows atrophy, white matter disease, no other acute abnormality. SOCIAL HISTORY: No alcohol, tobacco, drug use. FAMILY HISTORY: Non-revealing. Patient stated to me that she lives by herself. She could not recall details of what happened to her. LABORATORY DATA: The patient's labs show essentially normal CBC, platelets were 128. Chemistry on admission: BUN 16, creatinine 0.52, rest of basic metabolic panel within normal limits. Liver function tests within normal limits. Indirect bilirubin: 1.38. PT 14, PTT 29. Urinalysis: Within normal limits. CURRENT MEDICATIONS 1. Aspirin. 2. Amlodipine. 3. Protonix. 4. Colace. 5. Gabapentin. 6. Metoprolol. 7. Tramadol p.r.n. 8. [place] p.r.n. PHYSICAL EXAMINATION: VITAL SIGNS: On examination, vitals 98.2 temperature, 74 pulse, 20 respirations , 115/57 blood pressure. GENERAL: Not in acute distress, lying in bed. HEENT: Normocephalic, atraumatic head. NECK: No carotid bruits. No thyromegaly. LUNGS: Clear to auscultation bilaterally. CARDIAC: Normal cardiac rhythm and sounds. ABDOMEN: Soft, nontender. EXTREMITIES: No cyanosis, clubbing, or edema. Patient's left arm is in a sling. NEUROLOGIC: She is awake, very pleasant, and cooperative and lady, oriented x1 only. She has fluent speech. She could not recall details of her fall. Cranial nerve examination shows preserved perception of light. At times, patient was able to count fingers bilaterally. She blinks to visual threat bilaterally. Extraocular movements show limited abduction of the left eye, otherwise normal, no nystagmus. The patient told me that she has eye movement problems in the past; again, I do not know how reliable historian she is, but that is what she answers to me. Essentially symmetrical face, preserved facial strength and sensation. Corneal reflexes are present bilaterally, as well as gag. Tongue is in midline. Palate elevates symmetrically. Motor strength examination: Essentially symmetrical, I do not appreciate any definite weakness I did not check movements in proximal left upper extremity of course because of the fracture, but distally she gives good electronic security technician and able to move the leg symmetrically and is relatively strong, although she seems to have some amount of possibly neglect because when I was asking to move her left leg, she keeps moving the right. Sensory examination is somewhat limited. Patient's gives different answers, but it seems that she has somewhat better perception of pain and touch, and temperature in the right upper and lower extremities. Deep tendon reflexes 2+ upper extremities, absent in lower extremities, equivocal response to plantar stimulation bilaterally. Coordination is preserved on right [id number] testing. No dysmetria or tremor. Gait was not assessed. IMPRESSION: Status post fall and fracture of the left humerus. The patient is not able to provide history. I am not sure if it is baseline dementia or some amount of encephalopathy. According to the history and physical examination note, maybe because of the head trauma. She does have numbness in the left upper and lower extremities. She prefers to move the right better, so possibility of a stroke is on the differential. I would obtain MRI of the brain for further evaluation. Continue current treatment otherwise. Keep patient normotensive, euglycemic. Thank you very much for this interesting consultation. Dictated By: CHAPARRITA DANG/JOSEFINA Conf#: [id number] DID#: [id number] JUSTIN
[2016-07-17] VITALS (10 sets, daily range): BP systolic 116–157; BP diastolic 59–81; PULSE 63–74; RESP 17–20
[2016-07-17] MEDS: [UNRECOGNIZED DRUG - REMARK] XX SCH (01:00)
[2016-07-17] MEDS: HYDROCODONE/APAP (5/325) TAB PO PRN ×2 (03:32→11:27)
[2016-07-17] MEDS: PANTOPRAZOLE (EC) 40 MG TAB PO SCH (05:11)
[2016-07-17] MEDS: traMADol 50 MG TAB PO SCH ×3 (05:12→18:20)
[2016-07-17] MEDS: 1/2 NS + KCL 20 MEQ 1,000 ML IV SCH (05:13)
--- NOTE | 2016-07-17 08:36 | PN ---
Date/Time of Note Date/Time of Note DATE: 07/17/16 TIME: 08:20 Assessment/Plan VTE Prophylaxis VTE Prophylaxis Intervention: SCD's Lines/Catheters IV Catheter Type (from Nrs): Peripheral IV Urinary Cath still in place: Yes Reason Cath still needed: urinary retention Assessment/Plan Chief Complaint/Hosp Course 1. Syncope 2. Fracture of left proximal humerus, will have orthopedic consultation. 3. Debility 4. Vital signs are stable on current regimen. 5. Neurology consultation , neuro w/u is in progress , MRI of brain is ordered . 6. Hypertension, BP is elevated today. Will restart amlodipine. 7. will start discharge planning , consider transfer to SNF/rehab Problems: Subjective 24 Hr Interval Summary Free Text/Dictation She is sleeping but rouses easily to verbal stimuli . She is eating . She is having pain in L arm . Constitutional: no complaints Respiratory: no complaints Cardiovascular: no complaints Gastrointestinal: no complaints Musculoskeletal: restricted range of motion Skin: no complaints Neurologic: confusion Exam/Review of Systems Vital Signs Vitals Vital Signs Date Time Temp Pulse Resp B/P Pulse Ox O2 Delivery O2 Flow Rate FiO2 07/17/16 07:22 98.1 63 18 135/63 95 07/15/16 19:39 Room Air Intake and Output 07/16/16 07/16/16 07/17/16 15:00 23:00 07:00 Intake Total 720 ml 1080 ml Output Total 1000 ml 2600 ml Balance -280 ml -1520 ml Exam Constitutional: alert, frail Respiratory: clear to auscultation, diminished breath sounds Cardiovascular: regular rate and rhythm Gastrointestinal: soft Musculoskeletal: nl extremities to inspection Results Result Diagram: 07/16/16 0557 07/16/16 0557 Results 24 hrs Laboratory Tests Test 07/16/16 10:00 07/16/16 11:00 Prothrombin Time 14.3 H Prothrombin Time Ratio 1.1 INR International Normalized Ratio 1.11 Activated Partial Thromboplast Time 29.7 Urine Color YELLOW Urine Clarity HAZY Urine pH 6.0 Urine Specific [place] 1.015 Urine Ketones NEGATIVE Urine Nitrite NEGATIVE Urine Bilirubin NEGATIVE Urine Urobilinogen 1.0 E.U./dL Urine Leukocyte Esterase NEGATIVE Urine Microscopic RBC 2-5 Urine Microscopic WBC 2-5 Urine Transitional Epithelial Cells MODERATE Urine Bacteria FEW Urine Coarse Granular Casts RARE Urine Hemoglobin TRACE Urine Glucose NEGATIVE Urine Total Protein NEGATIVE Medications Medications Current Medications Acetaminophen (Tylenol Tab) 650 mg Q4H PRN PO PAIN; Start 07/15/16 at 17:30 Aspirin (Halfprin) 81 mg DAILY PO Last administered on 07/16/16 09:03; Admin Dose 81 MG; Start 07/16/16 at 09:00 Docusate Sodium (Colace) 100 mg QHS PO Last administered on 07/16/16 20:56; Admin Dose 100 MG; Start 07/15/16 at 21:00 Gabapentin (Neurontin) 300 mg QHS PO Last administered on 07/16/16 20:56; Admin Dose 300 MG; Start 07/15/16 at 21:00 Acetaminophen/ Hydrocodone Bitart ([place] (5/325)) 1 tab Q6H PRN PO PAIN Last administered on 07/17/16 03:32; Admin Dose 1 TAB; Start 07/15/16 at 17:30 Metoprolol Tartrate (Lopressor) 25 mg BID PO Last administered on 07/16/16 20: 57; Admin Dose 25 MG; Start 07/15/16 at 21:00 Tramadol HCl (Ultram) 50 mg Q6 PO Last administered on 07/17/16 05:12; Admin Dose 50 MG; Start 07/15/16 at 18:00 Zolpidem Tartrate (Ambien) 5 mg HS PRN PO PAIN LEVEL 6-10; Start 07/15/16 at 17: 30 Miscellaneous Information 1 drop BID OP ; Start 07/15/16 at 21:00; Status UNV Ondansetron HCl 4 mg 4 mg Q6H PRN IV NAUSEA AND/OR VOMITING Last administered on 07/15/16 20:14; Admin Dose 4 MG; Start 07/15/16 at 17:30 Potassium Chloride/Sodium Chloride (1/2 NS + KCl 20 Meq) 1,000 ml @ 80 mls/hr [id number] IV Last administered on 07/17/16 05:13; Admin Dose 80 MLS/HR; Start 07/15/16 at 17:30 Pantoprazole (Protonix Tab) 40 mg DAILY@06 PO Last administered on 07/17/16 05: 11; Admin Dose 40 MG; Start 07/16/16 at 06:00 Amlodipine Besylate (Norvasc) 5 mg DAILY PO Last administered on 6/6/17at 09:17 ; Admin Dose 5 MG; Start 07/16/16 at 09:00 Miscellaneous Information (*Order Clarification Bulletin) ELESTAT IS NON FORMULARY ITEM...PLE... Q8H XX ; Start 07/16/16 at 09:00 TACOS BERNAL MD Jul 17, 2016 08:36
[2016-07-17] MEDS: ASPIRIN (EC) 81 MG TAB PO SCH (11:28)
[2016-07-17] MEDS: METOPROLOL 25 MG TAB PO SCH ×2 (11:28→21:02)
[2016-07-17] MEDS: AMLODIPINE 5 MG TAB PO SCH (11:28)
[2016-07-17] MEDS: AZELASTINE 0.05% 6 ML OPH BOTH EYES SCH ×2 (13:08→21:01)
--- NOTE | 2016-07-17 18:40 | CONS ---
DATE OF ADMISSION: 07/17/2016 DATE OF CONSULTATION: 07/17/2016 TYPE OF CONSULTATION: Orthopedic surgical consultation HISTORY OF PRESENT ILLNESS: The patient is an 89-year-old female who was admitted on 07/15/2016 whe n she was brought into the emergency room because of the painful swelling and limit of motion involv ing her left shoulder. She obviously had a ground-level fall, possibly during her fainting spell, d eveloping the painful swelling and limit of motion involving her left shoulder. PAST MEDICAL HISTORY: She is known to have: 1. Hypertension. 2. Diffuse osteoarthritis. 3. Hyperlipidemia. 4. GERD. 5. Insomnia. 6. Degenerative disk disease. She is reported to have a questionable weakness involving the left upper and lower extremity and wor kup is in progress. PHYSICAL EXAMINATION: My examination revealed an 89-year-old female who was not in any acute distre ss. However, she seems to be somewhat confused and was not able to assist or participate in the his tory taking and physical examination. There was mild swelling and tenderness along with the limited motion of the left shoulder. Around the shoulder area, there was an ecchymosis migrating downward around the left lateral chest wall along with the considerable edema around the left elbow and forea rm, suggesting that the fracture may have occurred sooner than the history alleges. There was no ev idence of obvious axillary nerve compromise. DIAGNOSTIC STUDIES: X-rays of the left shoulder revealed a fracture involving the neck of the left humerus which is in a less than ideal alignment with some angulation and overlapping. DIAGNOSTIC IMPRESSION: Fracture of the surgical neck of the left humerus somewhat displaced and ang ulated. TREATMENT PLAN: 1. Trial of nonsurgical treatment by trying to keep the left upper extremity in a hanging position with mild distal traction and this can be achieved with the trial of HSS brace and this has been or dered. 2. Try to keep the patient in reclining position for a while, so the left humerus is maintained in a hanging position. 3. If the ideal alignment could not be achieved with the bracing and keeping the patient in reclin ing position, then possible the open reduction and internal fixation can be considered. Dictated By: KELSEY MINA/JOSEFINA Conf#: [id number] DID#: [id number]
[2016-07-17] MEDS: DOCUSATE SODIUM 100 MG CAP PO SCH (21:01)
[2016-07-17] MEDS: GABAPENTIN 300 MG CAP PO SCH (21:01)
--- NOTE | 2016-07-17 22:04 | CONS ---
Date/Time of Note Date/Time of Note DATE: 07/17/16 TIME: 22:03 Assessment Additional comments: I came to see the pt, not in the room, was taken for MRI CHAPARRITA PARADA MD Jul 17, 2016 22:04
--- NOTE | 2016-07-18 03:01 | RADRPT ---
PROCEDURE: X-ray left shoulder CLINICAL INDICATION: Positioning of left shoulder fracture. TECHNIQUE: 2 views left shoulder. COMPARISON: 07/15/2016. FINDINGS: Fracture of the surgical neck of the left humerus with 1/2 shaft width medial displacement of the di stal fragment. Anatomic alignment of the distal fracture fragment is similar in appearance to the pr ior examination. IMPRESSION: Fracture of the surgical neck of the left humerus, with 1/2 shaft width medial displacement of the d istal fragment, similar in appearance to prior examination. RPTAT: UU Physician Markie Date Time Electronically viewed and signed by Physician Markie on 07/18/2016 03:00 RS/
--- NOTE | 2016-07-18 04:41 | RADRPT ---
PROCEDURE: MR Brain without contrast. CLINICAL INDICATION: Syncope TECHNIQUE: Sagittal and axial T1 weighted, axial T2 weighted, coronal GRE, axial diffusion weighte d with ADC mapping, and axial FLAIR imaging without contrast. COMPARISON: CT from 07/15/2016 FINDINGS: There are numerous areas of restricted diffusion in the right cerebral and cerebellar hemispheres, m ost likely due to acute embolic infarcts. These are most confluent in the right posterior parietal region, involving the cortex as well but foci are also seen in the right basal ganglia, periventricu lar white matter, and temporal lobe in addition to single focus in the posterior right cerebellum. No areas of restricted diffusion of the left cerebellum a or left hemisphere are seen. There is ass ociated abnormal low signal on the ADC map but there is not clearly demonstrated associated abnormal FLAIR and T2 signal and some of the lesions. There does appear to be at least some abnormal FLAIR signal within the most confluent area in the right posterior parietal region. There is a background of cortical atrophy and chronic microvascular ischemic changes with ex vacuo dilatation of the vent ricles. Gradient images show no evidence for acute intracranial hemorrhage. Single tiny probable right posterior parietal old microhemorrhage. The midline structures are normal appearance. No mas s or midline shift is seen. No extraaxial fluid collection is seen. Grossly patent intracranial fl ow voids. Left vertebral artery dominance. There is minimal mucoperiosteal thickening of the ethmoi ds and minimal signal in the left mastoid. 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 The largest area is visible on T2-weighted images but many of the foci are not clearly appreciated on FLAIR or T2-weighted images suggesting these infarcts are acute to subacute. Results were called to the patient's nurse, Мария, at 07/18/2016 4:33:29 AM Critical results: Stroke RPTAT: HLBE Physician Ziggy Date Time Electronically viewed and signed by Sabrina Guerrero Physician on 07/18/2016 04:41 LE/
[2016-07-18] MEDS: traMADol 50 MG TAB PO SCH ×4 (06:43→18:36)
[2016-07-18] MEDS: PANTOPRAZOLE (EC) 40 MG TAB PO SCH (06:43)
[2016-07-18 07:27] VITALS: BP 157/80; RESP 19
--- NOTE | 2016-07-18 08:50 | PN ---
Date/Time of Note Date/Time of Note DATE: 07/18/16 TIME: 08:43 Assessment/Plan VTE Prophylaxis VTE Prophylaxis Intervention: SCD's Lines/Catheters IV [facility] Saline Lock Urinary Cath still in place: No Assessment/Plan Chief Complaint/Hosp Course 1. 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 will order echocardiogram and carotid duplex scan . 2. Fracture of left proximal humerus, ortho is seeing patient . 3. Debility 4. Vital signs are stable on current regimen. 5. Neurology consultation , neuro w/u is in progress 6. Hypertension, BP is elevated today. Will restart amlodipine. 7. will start discharge planning , consider transfer to SNF/rehab Problems: Subjective 24 Hr Interval Summary Free Text/Dictation Patient is in bed . She is awake and responsive . 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 Constitutional: disoriented Respiratory: no complaints Cardiovascular: no complaints Gastrointestinal: no complaints Neurologic: headache Exam/Review of Systems Vital Signs Vitals Vital Signs Date Time Temp Pulse Resp B/P Pulse Ox O2 Delivery O2 Flow Rate FiO2 07/18/16 07:27 98.8 82 19 157/80 94 07/15/16 19:39 Room Air Intake and Output 07/17/16 07/17/16 07/18/16 15:00 23:00 07:00 Intake Total 1460 ml 200 ml Output Total 1250 ml Balance 210 ml 200 ml Exam Constitutional: alert Psych: confusion Head: atraumatic, normocephalic Respiratory: clear to auscultation, normal air movement Cardiovascular: regular rate and rhythm Gastrointestinal: soft Musculoskeletal: muscle weakness, nl extremities to inspection Results Result Diagram: 07/16/16 0557 07/16/16 0557 Medications Medications Current Medications Acetaminophen (Tylenol Tab) 650 mg Q4H PRN PO PAIN; Start 07/15/16 at 17:30 Aspirin (Halfprin) 81 mg DAILY PO Last administered on 07/17/16 11:28; Admin Dose 81 MG; Start 07/16/16 at 09:00 Docusate Sodium (Colace) 100 mg QHS PO Last administered on 07/17/16 21:01; Admin Dose 100 MG; Start 07/15/16 at 21:00 Gabapentin (Neurontin) 300 mg QHS PO Last administered on 07/17/16 21:01; Admin Dose 300 MG; Start 07/15/16 at 21:00 Acetaminophen/ Hydrocodone Bitart ([place] (5/325)) 1 tab Q6H PRN PO PAIN Last administered on 07/17/16 11:27; Admin Dose 1 TAB; Start 07/15/16 at 17:30 Metoprolol Tartrate (Lopressor) 25 mg BID PO Last administered on 07/17/16 21: 02; Admin Dose 25 MG; Start 07/15/16 at 21:00 Tramadol HCl (Ultram) 50 mg Q6 PO Last administered on 07/18/16 06:43; Admin Dose 50 MG; Start 07/15/16 at 18:00 Zolpidem Tartrate (Ambien) 5 mg HS PRN PO PAIN LEVEL 6-10; Start 07/15/16 at 17: 30 Azelastine HCl (Optivar 0.05% Oph) 1 drop BID BOTH EYES Last administered on 21:01; Admin Dose 1 DROP; Start 07/17/16 at 11:30 Ondansetron HCl (Zofran Inj) 4 mg Q6H PRN IV NAUSEA AND/OR VOMITING Last administered on 07/15/16 20:14; Admin Dose 4 MG; Start 07/15/16 at 17:30 Pantoprazole (Protonix Tab) 40 mg DAILY@06 PO Last administered on 07/18/16 06: 43; Admin Dose 40 MG; Start 07/16/16 at 06:00 Amlodipine Besylate (Norvasc) 5 mg DAILY PO Last administered on 07/17/16 11:28 ; Admin Dose 5 MG; Start 07/16/16 at 09:00 TACOS BERNAL MD Jul 18, 2016 08:50
--- NOTE | 2016-07-18 10:09 | RADRPT ---
PROCEDURE: US Carotids. CLINICAL INDICATION: bruit , syncope TECHNIQUE: Multiple sonographic of the carotid bifurcation region and vertebral arteries were obta ined utilizing camargo scale, duplex and color-flow imaging. The images were reviewed on a PACS worksta tion. COMPARISON: No prior studies are available for comparison. FINDINGS: Evaluation of the right carotid bifurcation region reveals mild calcific atherosclerotic disease. . There is 32% stenosis in the right proximal ICA region. Evaluation of the left carotid bifurcation region reveals mild calcific atherosclerotic disease. . There is a 26% stenosis in the left common carotid artery. There is antegrade flow within the vertebral arteries bilaterally. RIGHT CAROTID MEASUREMENTS: Common Carotid Xlrbkr55.5 (cm/sec) Internal Carotid Artery - vfxfiftv70.6 (cm/sec) Internal Carotid Artery - mid62.5 (cm/sec) Internal Carotid Artery - .1 (cm/sec) Internal Carotid/Common Carotid1.15 LEFT CAROTID MEASUREMENTS: Common Carotid Fgyihi43.6 (cm/sec) Internal Carotid Artery - cyrpjlbl83.8 (cm/sec) Internal Carotid Artery - mid64.6 (cm/sec) Internal Carotid Artery - vkwkia96.1 (cm/sec) Internal Carotid/Common Carotid1.45 RPTAT: AA IMPRESSION: No evidence for hemodynamically significant stenosis in the bilateral internal carotid arteries - va lidated velocity measurements with angiographic measurements, velocity criteria are extrapolated fro m diameter data as defined by the Society of Radiologists in Ultrasound Consensus Conference Radiolo gy 2003; 229;340-346. This study does indirectly reference the measurement of the distal ICA diamet er as the denominator for stenosis measurement. Normal antegrade flow in the vertebral arteries bilaterally. Mild calcific plaque bilaterally, consistent with atherosclerotic disease. .Imer Madison MD, MD Date Time Electronically viewed and signed by .Imer Madison MD, MD on 07/18/2016 10:08 .S/
--- NOTE | 2016-07-18 10:12 | RADRPT ---
Echocardiogram Report Patient Name: ARIANA CAREY Gender: Female Date: 1925 Study Date: 18-Jul-2016 Staff Editor: Marcel [facility] Location: [id number] Ref. Physician: TACOS BERNAL Quality: Adequate Procedures: Transthoracic echocardiogram with complete 2D, M-Mode, and doppler examination. Indications: STROKE. 2D/M Mode Doppler Measurement Value Normal Ranges Measurement Value Normal Ranges LVIDd 2D 2.7 3.5 - 5.6 cm AV Peak Caleb 1.5 m/sec LVIDs 2D 1.7 2.1 - 4.1 cm AV Peak PG 9.5 mmHg LVPWd 2D 1.1 0.6 - 1.1 cm AI Peak PG 46.7 mmHg IVSd 2D 1.5 0.6 - 1.1 cm AI Peak Caleb 3.4 m/sec AoR Diam 2D 3.1 2.0 - 3.7 cm AI PHT 749.9 msec EDV 2D 26.1 cm3 LVOT Peak Caleb 1.2 m/sec ESV 2D 5.0 cm3 LVOT Peak PG 5.9 mmHg LA Dimen 2D 3.3 2.3 - 4.0 cm MV E Peak Caleb 0.5 m/sec MV A Peak Caleb 1.4 m/sec MV E/A 0.4 MV Decel Time 119 msec MV Decel [place] 5 MV E/A 0.4 TR Peak Caleb 3.8 m/sec TR Peak PG 57.9 mmHg RVSP 61.0 mmHg Findings Left Ventricle: Normal left ventricular systolic function. Normal left ventricular cavity size. Sigmoid septum. Mild concentric left ventricular hypertrophy. Ejection fraction is visually estimated at 65 %. Tissue Doppler/Mitral Doppler indices are consistent with impaired relaxation (Stage I diastolic dysfunction). E/E`=14. No left ventricular outflow tract gradient at rest. Inc E/e` ratio c/w possibly elevated LA Pressure. Right Ventricle: Normal right ventricular size. Normal right ventricular systolic function. Left Atrium: The left atrium is normal in size. Right Atrium: Right atrium at upper limits of normal. Mitral Valve: Mild mitral leaflet calcification. Mild mitral annular calcification. Trace mitral regurgitation. Calcification at the base of the MV posterior Leaflet but no prolapse. Aortic Valve: Aortic sclerosis without stenosis. Trileaflet aortic valve. Mild aortic valve regurgitation. T1/4=[id number]. Tricuspid Valve: Normal appearance of the tricuspid valve. Estimated peak PA systolic pressure 61 mmHg. There is mild to moderate tricuspid regurgitation. Mod-severe pulmonary HTN. Pulmonic Valve: Pulmonic valve not well visualized. There is trace pulmonic regurgitation. Pericardium: Normal pericardium with no significant pericardial effusion. Aorta: Normal aortic root. IVC: Normal size and normal respiratory collapse consistent with normal right atrial pressure. Conclusions 1.Normal left ventricular systolic function. Normal left ventricular cavity size. Sigmoid septum. Mild concentric left ventricular hypertrophy. Ejection fraction is visually estimated at 65 %. Tissue Doppler/Mitral Doppler indices are consistent with impaired relaxation (Stage I diastolic dysfunction). E/E`=14. No left ventricular outflow tract gradient at rest. Inc E/e` ratio c/w possibly elevated LA Pressure. 2.The left atrium is normal in size. 3.Mild mitral leaflet calcification. Mild mitral annular calcification. Trace mitral regurgitation. Calcification at the base of the MV posterior Leaflet but no prolapse. 4.Normal appearance of the tricuspid valve. Estimated peak PA systolic pressure 61 mmHg. There is mild to moderate tricuspid regurgitation. Mod-severe pulmonary HTN. 5.Normal pericardium with no significant pericardial effusion. 6.Normal size and normal respiratory collapse consistent with normal right atrial pressure. 7.No Vegetation, masses, or thrombi seen. 8.Aortic sclerosis without stenosis. Trileaflet aortic valve. Mild aortic valve regurgitation. T1/7=[id number]. Electronically Signed By: Frederic Fung 18-Jul-2016 10:11:44 -0700 Patient Name: ARIANA CAREY Study Date: 18-Jul-2016 [id number]
[2016-07-18 11:30] VITALS: BP 161/71; RESP 18
[2016-07-18] MEDS: ASPIRIN (EC) 81 MG TAB PO SCH (12:59)
[2016-07-18] MEDS: METOPROLOL 25 MG TAB PO SCH ×2 (12:59→21:14)
[2016-07-18] MEDS: AZELASTINE 0.05% 6 ML OPH BOTH EYES SCH ×2 (12:59→21:14)
[2016-07-18] MEDS: ENOXAPARIN 40 MG/0.4 ML SYG SC SCH (13:02)
[2016-07-18] MEDS: AMLODIPINE 5 MG TAB PO SCH (13:18)
[2016-07-18 15:43] VITALS: BP 154/73; RESP 19
--- NOTE | 2016-07-18 16:03 | RADRPT ---
PROCEDURE: Left shoulder 2 views CLINICAL INDICATION: Left shoulder pain and trauma, post traction. TECHNIQUE: AP internal and external rotation views of the left shoulder were obtained COMPARISON: July 17, 2016 FINDINGS: Mildly comminuted fracture through the surgical neck of the proximal left humerus is identified. Im paction fracture fragments has mildly decreased. Moderate displacement continues to be seen. Diffu se osteopenia is observed. No destructive bony lesions are observed. Interosseous spaces are gross ly unremarkable. Soft tissues are unremarkable. IMPRESSION: Continued fracture through the surgical neck of the proximal left humerus. Mild interval decrease in impaction fracture fragments. Moderate displacement and mild impaction re kenyatta. Osteopenia. RPTAT: AA .Maikel Morales MD, MD Date Time Electronically viewed and signed by .Maikel Morales MD, on 07/18/2016 16:03 .P/
[2016-07-18 20:05] VITALS: BP 140/74; RESP 20
[2016-07-18] MEDS: GABAPENTIN 300 MG CAP PO SCH (21:13)
[2016-07-18] MEDS: DOCUSATE SODIUM 100 MG CAP PO SCH (21:13)
--- NOTE | 2016-07-18 21:17 | CONS ---
Date/Time of Note Date/Time of Note DATE: 07/18/16 TIME: 21:07 Consult Date/Type/Reason Admit Date/Time Jul 17, 2016 at 08:13 Initial Consult Date Subjective very lethargic today Objective Vital Signs Date Time Temp Pulse Resp B/P Pulse Ox O2 Delivery O2 Flow Rate FiO2 07/18/16 20:05 98.3 89 20 140/74 93 07/15/16 19:39 Room Air Intake and Output 07/17/16 07/17/16 07/18/16 15:00 23:00 07:00 Intake Total 1460 ml 200 ml Output Total 1250 ml Balance 210 ml 200 ml Results/Medications Result Diagram: 07/16/16 0557 07/16/16 0557 Medications Current Medications Acetaminophen (Tylenol Tab) 650 mg Q4H PRN PO PAIN; Start 07/15/16 at 17:30 Aspirin (Halfprin) 81 mg DAILY PO Last administered on 07/18/16 12:59; Admin Dose 81 MG; Start 07/16/16 at 09:00 Docusate Sodium (Colace) 100 mg QHS PO Last administered on 07/17/16 21:01; Admin Dose 100 MG; Start 07/15/16 at 21:00 Gabapentin (Neurontin) 300 mg QHS PO Last administered on 07/17/16 21:01; Admin Dose 300 MG; Start 07/15/16 at 21:00 Acetaminophen/ Hydrocodone Bitart ([place] (5/325)) 1 tab Q6H PRN PO PAIN Last administered on 07/17/16 11:27; Admin Dose 1 TAB; Start 07/15/16 at 17:30 Metoprolol Tartrate (Lopressor) 25 mg BID PO Last administered on 07/18/16 12: 59; Admin Dose 25 MG; Start 07/15/16 at 21:00 Tramadol HCl (Ultram) 50 mg Q6 PO Last administered on 07/18/16 18:36; Admin Dose 50 MG; Start 07/15/16 at 18:00 Zolpidem Tartrate (Ambien) 5 mg HS PRN PO PAIN LEVEL 6-10; Start 07/15/16 at 17: 30 Azelastine HCl (Optivar 0.05% Oph) 1 drop BID BOTH EYES Last administered on 12:59; Admin Dose 1 DROP; Start 07/17/16 at 11:30 Ondansetron HCl (Zofran Inj) 4 mg Q6H PRN IV NAUSEA AND/OR VOMITING Last administered on 07/15/16 20:14; Admin Dose 4 MG; Start 07/15/16 at 17:30 Pantoprazole (Protonix Tab) 40 mg DAILY@06 PO Last administered on 07/18/16 06: 43; Admin Dose 40 MG; Start 07/16/16 at 06:00 Amlodipine Besylate (Norvasc) 5 mg DAILY PO Last administered on 07/18/16 13:18 ; Admin Dose 5 MG; Start 07/16/16 at 09:00 Enoxaparin Sodium (Lovenox) 40 mg DAILY SC Last administered on 07/18/16 13:02 ; Admin Dose 40 MG; Start 07/18/16 at 09:30 Assessment/Plan Chief Complaint/Hosp Course PHYSICAL EXAMINATION: GENERAL: Not in acute distress, lying in bed. HEENT: Normocephalic, atraumatic head, tilted to the right NECK: No carotid bruits. No thyromegaly. LUNGS: Clear to auscultation bilaterally. CARDIAC: Normal cardiac rhythm and sounds. ABDOMEN: Soft, nontender. EXTREMITIES: No cyanosis, clubbing, or edema. Patient's left arm is in a sling. NEUROLOGIC: She is lethargic, hardly arousable talks in low voice, oriented x 1 , goes back to sleep. Essentially not verbal. She blinks to visual threat on the right. Extraocular movements show limited abduction of the left eye, otherwise normal, no nystagmus. Essentially symmetrical face, preserved facial strength and sensation. Corneal reflexes are present bilaterally, as well as gag. Motor strength examination: Moves right side to min noxious stimuli, minimally withdraws LLE, no movements LUE to pain. Grimaces when pain is applied. Deep tendon reflexes 2+ upper extremities, absent in lower extremities , equivocal response to plantar stimulation bilaterally. No tremor. Gait was not assessed. IMPRESSION: Status post fall and fracture of the left humerus. MRI shows multiple acute-subacute right cerebral and one right cerebellar ischemic CVAs, given one sided likely embolic from unilateral large artery, carotid or from the arch. Car US negative. Unclear why became so altered. Will repeat CT tomorrow, labs. Continue current treatment otherwise. Keep patient normotensive, euglycemic, ASA, start statin, swallow eval . Problems: CHAPARRITA PARADA MD Jul 18, 2016 21:17
[2016-07-19 00:03] VITALS: BP 145/78; RESP 18
[2016-07-19] MEDS: ATORVASTATIN 40 MG TAB PO SCH ×2 (00:23→20:47)
[2016-07-19] MEDS: traMADol 50 MG TAB PO SCH ×5 (00:23→23:11)
[2016-07-19] MEDS: PANTOPRAZOLE (EC) 40 MG TAB PO SCH (06:36)
[2016-07-19 06:48] LABS: ADD SCAN DIFF NO
[2016-07-19 06:57] LABS: BASOPHILS % 0.1 % (0.0-2.0); HEMATOCRIT 40.4 % (37.0-47.0); HEMOGLOBIN 13.7 g/dl (12.0-16.0); LYMPHOCYTES # 0.6 10^3/ul (0.8-2.9); LYMPHOCYTES % 5.1 % (15.0-51.0); MEAN CORPUSCULAR HEMOGLOBIN 30.6 pg (29.0-33.0); MEAN CORPUSCULAR HGB CONC 33.9 g/dl (32.0-37.0); MEAN CORPUSCULAR VOLUME 90.2 fl (82.0-101.0); MEAN PLATELET VOLUME 10.8 fl (7.4-10.4); MONOCYTES % 8.3 % (0.0-11.0); NEUTROPHIL # 10.2 10^3/ul (1.6-7.5); NEUTROPHILS % 86.2 % (39.0-77.0); PLATELET COUNT 175 10^3/UL (140-415); RED BLOOD COUNT 4.48 10^6/ul (4.20-5.40); RED CELL DISTRIBUTION WIDTH 12.4 % (11.5-14.5); WHITE BLOOD COUNT 11.8 10^3/ul (4.8-10.8)
[2016-07-19 07:09] VITALS: BP 117/67; RESP 19
[2016-07-19 07:18] LABS: ALBUMIN 4.1 g/dl (3.3-4.9); ALBUMIN/GLOBULIN RATIO 1.41; BILIRUBIN,INDIRECT 1.9 mg/dl (0-1.1); BILIRUBIN,TOTAL 1.9 mg/dl (0.2-1.3); CALCIUM 9.3 mg/dl (8.4-10.2); CREATININE 1.27 mg/dl (0.44-1.00); POTASSIUM 4.6 mmol/L (3.5-5.1)
[2016-07-19] MEDS: METOPROLOL 25 MG TAB PO SCH ×2 (09:00→20:48)
[2016-07-19] MEDS: ASPIRIN (EC) 81 MG TAB PO SCH (09:00)
[2016-07-19] MEDS: AMLODIPINE 5 MG TAB PO SCH (09:00)
[2016-07-19] MEDS ORDERED: DEXTROSE 50% 50 ML SYRINGE IV PRN ×2 (09:30)
[2016-07-19] MEDS ORDERED: GLUCOSE GEL 15 GRAM TUBE BUCCAL PRN (09:30)
[2016-07-19] MEDS ORDERED: GLUCOSE GEL 15 GRAM TUBE PO PRN ×2 (09:30)
[2016-07-19] MEDS ORDERED: GLUCAGON 1 MG INJ IM PRN (09:30)
[2016-07-19 09:46] LABS: ADD UMIC YES; UR BILIRUBIN (Dip) 1+ (NEGATIVE); UR BLOOD (Dip) 3+ (NEGATIVE); UR CLARITY CLOUDY (CLEAR); UR COLOR BROWN (YELLOW); UR GLUCOSE (Dip) NEGATIVE (NEGATIVE); UR KETONES (Dip) TRACE (NEGATIVE); UR LEUKOCYTE ESTERASE (Dip) 3+ (NEGATIVE); UR NITRITE (Dip) POSITIVE (NEGATIVE); UR TOTAL PROTEIN (Dip) 4+ (NEGATIVE); UR UROBILINOGEN (Dip) 1.0 E.U./dL (0.1-1.0)
--- NOTE | 2016-07-19 10:01 | PN ---
Date/Time of Note Date/Time of Note DATE: 07/19/16 TIME: 09:53 Assessment/Plan VTE Prophylaxis VTE Prophylaxis Intervention: LMWH Lines/Catheters IV [facility] Type [facility]from [facility] Saline Lock Urinary Cath still in place: Yes Reason Cath still needed: urinary retention Assessment/Plan Chief Complaint/Hosp Course 1. 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 CAT scan done today shows a completed CVA in R cerebrum .She is not taking PO . I will start IV fluids and follow . She is now unresponsive . Her prognosis is poor . She is now a DNR . 2. Fracture of left proximal humerus, ortho is seeing patient . 3. Debility 4. Vital signs are stable on current regimen. 5. Neurology consultation , neuro w/u is in progress 6. Hypertension, BP is elevated today. Will restart amlodipine. 7. will start discharge planning , consider transfer to SNF/rehab Problems: Subjective 24 Hr Interval Summary Free Text/Dictation Patient is unresponsive . She is now having a CT scan of the brain done . The scan shows a completed R cerebral stroke , no evidence of bleeding . Subjective hx not possible: pt non-verbal Exam/Review of Systems Vital Signs Vitals Vital Signs Date Time Temp Pulse Resp B/P Pulse Ox O2 Delivery O2 Flow Rate FiO2 07/19/16 07:09 98.4 88 19 117/67 94 07/15/16 19:39 Room Air Intake and Output 07/18/16 07/18/16 07/19/16 15:00 23:00 07:00 Intake Total 200 ml 50 ml Output Total 400 ml Balance -200 ml 50 ml Exam Constitutional: non-verbal Neck: supple Respiratory: clear to auscultation, normal air movement Cardiovascular: regular rate and rhythm Gastrointestinal: soft Musculoskeletal: nl extremities to inspection Neurological: focal weakness Results Result Diagram: 07/19/16 0615 07/19/16 0615 Results 24 hrs Laboratory Tests Test 07/19/16 06:15 White Blood Count 11.8 #H Red Blood Count 4.48 Hemoglobin 13.7 Hematocrit 40.4 Mean Corpuscular Volume 90.2 Mean Corpuscular Hemoglobin 30.6 Mean Corpuscular Hemoglobin Concent 33.9 Red Cell Distribution Width 12.4 Platelet Count 175 # Mean Platelet Volume 10.8 H Neutrophils % 86.2 H Lymphocytes % 5.1 L Monocytes % 8.3 Eosinophils % 0.0 Basophils % 0.1 Nucleated Red Blood Cells % 0.0 Neutrophils # 10.2 H Lymphocytes # 0.6 L Monocytes # 1.0 H Eosinophils # 0.0 Basophils # 0.0 Nucleated Red Blood Cells # 0.0 Sodium Level 135 Potassium Level 4.6 Chloride Level 99 Carbon Dioxide Level 26 Anion Gap 15 Blood Urea Nitrogen 32 H Creatinine 1.27 H Glucose Level 149 Calcium Level 9.3 Magnesium Level 2.0 Total Bilirubin 1.9 H Direct Bilirubin 0.00 Indirect Bilirubin 1.9 H Aspartate Amino Transf (AST/SGOT) 25 Alanine Aminotransferase (ALT/SGPT) 34 Alkaline Phosphatase 88 Total Protein 7.0 Albumin 4.1 Globulin 2.90 Albumin/Globulin Ratio 1.41 Parathyroid Hormone (Intact) Pending Medications Medications Current Medications Acetaminophen (Tylenol Tab) 650 mg Q4H PRN PO PAIN; Start 07/15/16 at 17:30 Aspirin (Halfprin) 81 mg DAILY PO Last administered on 07/18/16 12:59; Admin Dose 81 MG; Start 07/16/16 at 09:00 Docusate Sodium (Colace) 100 mg QHS PO Last administered on 07/18/16 21:13; Admin Dose 100 MG; Start 07/15/16 at 21:00 Gabapentin (Neurontin) 300 mg QHS PO Last administered on 07/18/16 21:13; Admin Dose 300 MG; Start 07/15/16 at 21:00 Acetaminophen/ Hydrocodone Bitart ([place] (5/325)) 1 tab Q6H PRN PO PAIN Last administered on 07/17/16 11:27; Admin Dose 1 TAB; Start 07/15/16 at 17:30 Metoprolol Tartrate (Lopressor) 25 mg BID PO Last administered on 07/18/16 21: 14; Admin Dose 25 MG; Start 07/15/16 at 21:00 Tramadol HCl (Ultram) 50 mg Q6 PO Last administered on 07/19/16 06:36; Admin Dose 50 MG; Start 07/15/16 at 18:00 Zolpidem Tartrate (Ambien) 5 mg HS PRN PO PAIN LEVEL 6-10; Start 07/15/16 at 17: 30 Azelastine HCl (Optivar 0.05% Oph) 1 drop BID BOTH EYES Last administered on 21:14; Admin Dose 1 DROP; Start 07/17/16 at 11:30 Ondansetron HCl (Zofran Inj) 4 mg Q6H PRN IV NAUSEA AND/OR VOMITING Last administered on 07/15/16 20:14; Admin Dose 4 MG; Start 07/15/16 at 17:30 Pantoprazole (Protonix Tab) 40 mg DAILY@06 PO Last administered on 07/19/16 06: 36; Admin Dose 40 MG; Start 07/16/16 at 06:00 Amlodipine Besylate (Norvasc) 5 mg DAILY PO Last administered on 07/18/16 13:18 ; Admin Dose 5 MG; Start 07/16/16 at 09:00 Enoxaparin Sodium (Lovenox) 40 mg DAILY SC Last administered on 07/18/16 13:02 ; Admin Dose 40 MG; Start 07/18/16 at 09:30 Atorvastatin Calcium (Lipitor) 40 mg HS PO Last administered on 07/19/16 00:23 ; Admin Dose 40 MG; Start 07/18/16 at 21:30 TACOS BERNAL MD Jul 19, 2016 10:01
[2016-07-19 10:04] LABS: ICTOTEST NEGATIVE (NEGATIVE); UR BACTERIA MANY; UR TRIPLE PHOSPHATE CRYSTAL OCCASIONAL
[2016-07-19] MEDS: AZELASTINE 0.05% 6 ML OPH BOTH EYES SCH ×2 (10:14→20:42)
[2016-07-19] MEDS: ENOXAPARIN 40 MG/0.4 ML SYG SC SCH (10:15)
[2016-07-19] MEDS: INSULIN ASPART [NOVOLOG] 3 ML PEN SC SCH ×3 (10:25→23:15)
--- NOTE | 2016-07-19 10:25 | RADRPT ---
PROCEDURE: CT Brain without. CLINICAL INDICATION: Worsening encephalopathy. TECHNIQUE: A CT of the brain was performed on multidetector high-resolution CT scanner utilizing a xial sections from the skull base through the vertex without contrast. The scan was reviewed in sof t tissue brain and high frequency resolution bone algorithm windows. Images were reviewed on a high -resolution PACS workstation. One or more the following does reduction techniques were utilized: Aut omated exposure control, adjustment of the mA/ or kV according to patient's size, or use of iterativ e reconstruction technique. The exam CTDI = 40.96 mGy and the DLP = 630.2 mGy-cm. COMPARISON: Brain CT 07/15/2016. Brain MRI 07/17/2016. FINDINGS: Evolving multiple right cerebral and cerebellar recent infarcts, more pronounced in the right pariet al lobe. The ventricles and sulci are mildly to moderately prominent indicative of volume loss. There is mild cerebellar volume loss. There is no intracranial hemorrhage, mass effect or midline shift. No abn ormal intra-axial or extra-axial fluid collections are seen. There are moderate scattered foci of hypoattenuation in the white matter, which are nonspecific in e tiology but likely reflect chronic small vessel ischemic changes. There are moderate intracranial v ascular calcifications consistent with atherosclerosis. The visualized paranasal sinuses are essenti ally clear. Both globes are elongated which may represent coloboma or staphloma. IMPRESSION: 1. Evolving multiple right cerebral and cerebellar recent infarcts, more pronounced in the right pa rietal lobe. No gross hemorrhagic transformation. 2. Moderate intracranial atherosclerosis and chronic small vessel ischemic changes. 3. Mild to moderate generalized cerebral and cerebellar volume loss. 4. Elongated bilateral globes, which may represent coloboma or staphloma. RPTAT: UU .Zahraa Gil MD, MD Date Time Electronically viewed and signed by .Zahraa Gil MD, MD on 07/19/2016 10:25 .N/
[2016-07-19] MEDS: DEXTROSE 5%-0.9% NACL 1,000 ML IV SCH ×2 (10:26→20:42)
--- NOTE | 2016-07-19 11:10 | RADRPT ---
PROCEDURE: XR Chest. CLINICAL INDICATION: Encephalopathy. TECHNIQUE: Chest x-ray, single view. COMPARISON: 07/15/2016. FINDINGS: The cardiac silhouette is magnified and unchanged in size and configuration. Aortic arch atheroscle rotic calcification is observed. The thoracic aorta is tortuous. Low lung volumes are observed. M ild basilar atelectatic changes are present. Osseous structures appear demineralized. The left hum eral neck fractures again identified. Spinal curvature with multilevel degenerative disk disease is present. A large hiatal hernia is again identified. IMPRESSION: Atherosclerosis. Low lung volumes with bibasilar atelectasis. RPTAT: HLST .Neli Aguilar MD, MD Date Time Electronically viewed and signed by .Neli Aguilar MD, on 07/19/2016 11:10 .T/
[2016-07-19 11:18] VITALS: BP 95/53; RESP 18
--- NOTE | 2016-07-19 12:10 | CONS ---
Date/Time of Note Date/Time of Note DATE: 07/19/16 TIME: 12:06 Consult Date/Type/Reason Admit Date/Time Jul 17, 2016 at 08:13 Initial Consult Date 07/19/16 Type of Consultation: Neurology Reason for Consultation CVA Subjective follow up with Dr. Alicia remains lethargic, made DNR Repeat Head CT shows evolving multiple right cerebral and cerebellar infarcts, right parietal lobe no hemorrhage moderate athero chronic vessel changes Objective Vital Signs Date Time Temp Pulse Resp B/P Pulse Ox O2 Delivery O2 Flow Rate FiO2 07/19/16 11:18 98.3 80 18 95/53 96 07/15/16 19:39 Room Air Intake and Output 07/18/16 07/18/16 07/19/16 15:00 23:00 07:00 Intake Total 200 ml 50 ml Output Total 400 ml Balance -200 ml 50 ml Exam PHYSICAL EXAMINATION: GENERAL: Not in acute distress, lying in bed.difficult to arouse unable to open her eyes HEENT: Normocephalic, atraumatic head, tilted to the right NECK: No carotid bruits. No thyromegaly. LUNGS: Clear to auscultation bilaterally. CARDIAC: Normal cardiac rhythm and sounds. ABDOMEN: Soft, nontender. EXTREMITIES: No cyanosis, clubbing, or edema. Patient's left arm is in a sling. NEUROLOGIC: She is lethargic, hardly arousable talks in low voice, oriented x 1 , goes back to sleep. Essentially not verbal. She blinks to visual threat on the right. Extraocular movements show limited abduction of the left eye, otherwise normal, no nystagmus. Essentially symmetrical face, preserved facial strength and sensation. Corneal reflexes are present bilaterally, as well as gag. Motor strength examination: Moves right side to min noxious stimuli, minimally withdraws LLE, no movements LUE to pain. Grimaces when pain is applied. Deep tendon reflexes 2+ upper extremities, absent in lower extremities , equivocal response to plantar stimulation bilaterally. No tremor. Gait was not assessed. Results/Medications Result Diagram: 07/19/16 0615 07/19/16 0615 Results 24 hrs Laboratory Tests Test 07/19/16 06:15 07/19/16 08:10 07/19/16 10:25 White Blood Count 11.8 #H Red Blood Count 4.48 Hemoglobin 13.7 Hematocrit 40.4 Mean Corpuscular Volume 90.2 Mean Corpuscular Hemoglobin 30.6 Mean Corpuscular Hemoglobin Concent 33.9 Red Cell Distribution Width 12.4 Platelet Count 175 # Mean Platelet Volume 10.8 H Neutrophils % 86.2 H Lymphocytes % 5.1 L Monocytes % 8.3 Eosinophils % 0.0 Basophils % 0.1 Nucleated Red Blood Cells % 0.0 Neutrophils # 10.2 H Lymphocytes # 0.6 L Monocytes # 1.0 H Eosinophils # 0.0 Basophils # 0.0 Nucleated Red Blood Cells # 0.0 Sodium Level 135 Potassium Level 4.6 Chloride Level 99 Carbon Dioxide Level 26 Anion Gap 15 Blood Urea Nitrogen 32 H Creatinine 1.27 H Glucose Level 149 Calcium Level 9.3 Magnesium Level 2.0 Total Bilirubin 1.9 H Direct Bilirubin 0.00 Indirect Bilirubin 1.9 H Aspartate Amino Transf (AST/SGOT) 25 Alanine Aminotransferase (ALT/SGPT) 34 Alkaline Phosphatase 88 Total Protein 7.0 Albumin 4.1 Globulin 2.90 Albumin/Globulin Ratio 1.41 Parathyroid Hormone (Intact) Urine Color BROWN Urine Clarity CLOUDY Urine pH 8.5 Urine Specific [place] 1.015 Urine Ketones TRACE H Urine Nitrite POSITIVE H Urine Bilirubin 1+ H Urine Ictotest Pending Urine Urobilinogen 1.0 E.U./dL Urine Leukocyte Esterase 3+ H Urine Microscopic RBC Pending Urine Microscopic WBC Pending Urine Triple Phosphate Crystals Pending Urine Bacteria Pending Urine Hemoglobin 3+ H Urine Random Creatinine 51.19 Urine Random Sodium 131 H Urine Glucose NEGATIVE Urine Total Protein 4+ H Bedside Glucose 136 Medications Current Medications Acetaminophen (Tylenol Tab) 650 mg Q4H PRN PO PAIN; Start 07/15/16 at 17:30 Aspirin (Halfprin) 81 mg DAILY PO Last administered on 07/18/16 12:59; Admin Dose 81 MG; Start 07/16/16 at 09:00 Docusate Sodium (Colace) 100 mg QHS PO Last administered on 07/18/16 21:13; Admin Dose 100 MG; Start 07/15/16 at 21:00 Gabapentin (Neurontin) 300 mg QHS PO Last administered on 07/18/16 21:13; Admin Dose 300 MG; Start 07/15/16 at 21:00 Acetaminophen/ Hydrocodone Bitart ([place] (5/325)) 1 tab Q6H PRN PO PAIN Last administered on 07/17/16 11:27; Admin Dose 1 TAB; Start 07/15/16 at 17:30 Metoprolol Tartrate (Lopressor) 25 mg BID PO Last administered on 07/18/16 21: 14; Admin Dose 25 MG; Start 07/15/16 at 21:00 Tramadol HCl (Ultram) 50 mg Q6 PO Last administered on 07/19/16 06:36; Admin Dose 50 MG; Start 07/15/16 at 18:00 Zolpidem Tartrate (Ambien) 5 mg HS PRN PO PAIN LEVEL 6-10; Start 07/15/16 at 17: 30 Azelastine HCl (Optivar 0.05% Oph) 1 drop BID BOTH EYES Last administered on 10:14; Admin Dose 1 DROP; Start 07/17/16 at 11:30 Ondansetron HCl (Zofran Inj) 4 mg Q6H PRN IV NAUSEA AND/OR VOMITING Last administered on 07/15/16 20:14; Admin Dose 4 MG; Start 07/15/16 at 17:30 Pantoprazole (Protonix Tab) 40 mg DAILY@06 PO Last administered on 07/19/16 06: 36; Admin Dose 40 MG; Start 07/16/16 at 06:00 Amlodipine Besylate (Norvasc) 5 mg DAILY PO Last administered on 07/18/16 13:18 ; Admin Dose 5 MG; Start 07/16/16 at 09:00 Enoxaparin Sodium (Lovenox) 40 mg DAILY SC Last administered on 07/19/16 10:15 ; Admin Dose 40 MG; Start 07/18/16 at 09:30 Atorvastatin Calcium 40 mg 40 mg HS PO Last administered on 07/19/16 00:23; Admin Dose 40 MG; Start 07/18/16 at 21:30 Dextrose/Sodium Chloride (D5-NS) 1,000 ml @ 100 mls/hr Q10H IV Last administered on 07/19/16 10:26; Admin Dose 100 MLS/HR; Start 07/19/16 at 10:00 Insulin Aspart (Novolog Insulin Pen) NOVOLOG *MILD* ALGORITHM Q6 SC ; Start 07/19 at 12:00 Diagnostic Test (Pha) (Accu-Chek) 1 ea 02 XX ; Start 07/20/16 at 02:00 Miscellaneous Information 1 ea NOTE XX ; Start 07/19/16 at 09:30 Glucose (Glutose) 15 gm Q15M PRN PO DECREASED GLUCOSE; Start 07/19/16 at 09:30 Glucose (Glutose) 22.5 gm Q15M PRN PO DECREASED GLUCOSE; Start 07/19/16 at 09:30 Dextrose (D50w Syringe) 25 ml Q15M PRN IV DECREASED GLUCOSE; Start 07/19/16 at 09:30 Dextrose (D50w Syringe) 50 ml Q15M PRN IV DECREASED GLUCOSE; Start 07/19/16 at 09:30 Glucagon (Glucagen) 1 mg Q15M PRN IM DECREASED GLUCOSE; Start 07/19/16 at 09:30 Glucose (Glutose) 15 gm Q15M PRN BUCCAL DECREASED GLUCOSE; Start 07/19/16 at 09: 30 Assessment/Plan Chief Complaint/Hosp Course 89 yo s/p fall and fracture and left humerus, 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 Repeat Head CT shows no hemorrhagic conversion, more pronounced infarction in right parietal lobe. Suspect embolic etiology. .Recommendations: maintain nomortension euglycemia ASA statin continue swallow eval if remains lethargic may require artificial nutrition/ NGT PEG if no improvement continue goals of care discussion now DNR . Problems: MATHEUS JUNIOR MD Jul 19, 2016 12:10
[2016-07-19 19:33] VITALS: BP 103/58; RESP 17
[2016-07-19] MEDS: DOCUSATE SODIUM 100 MG CAP PO SCH (20:47)
[2016-07-19 23:50] VITALS: BP 106/54; RESP 18
[2016-07-20] MEDS ORDERED: ACCU-CHEK XX SCH (02:00)
[2016-07-20 03:14] VITALS: BP 111/61; RESP 18
[2016-07-20] MEDS: INSULIN ASPART [NOVOLOG] 3 ML PEN SC SCH ×4 (06:00→23:54)
[2016-07-20] MEDS: PANTOPRAZOLE (EC) 40 MG TAB PO SCH (06:02)
[2016-07-20] MEDS: DEXTROSE 5%-0.9% NACL 1,000 ML IV SCH ×2 (06:02→16:48)
[2016-07-20] MEDS: traMADol 50 MG TAB PO SCH ×4 (06:05→23:52)
[2016-07-20 07:12] LABS: ADD SCAN DIFF NO
[2016-07-20 07:20] VITALS: BP 125/64; RESP 18
--- NOTE | 2016-07-20 07:25 | PN ---
DATE: 07/19/2016 Having some difficulty keeping her in an appropriate reclining position. Repeat x-rays of the left shoulder revealed slight improvement of the alignment. Considering her neurologic condition, she is not an ideal candidate for surgery. Will continue brace immobilization. Some adjustment in the br acing has been made to improve the condition. Dictated By: KELSEY MINA/JOSEFINA Conf#: [id number] DID#: [id number]
[2016-07-20 07:33] LABS: HEMATOCRIT 35.4 % (37.0-47.0); HEMOGLOBIN 11.7 g/dl (12.0-16.0); LYMPHOCYTES # 0.7 10^3/ul (0.8-2.9); LYMPHOCYTES % 10.2 % (15.0-51.0); MEAN CORPUSCULAR HEMOGLOBIN 30.9 pg (29.0-33.0); MEAN CORPUSCULAR HGB CONC 33.1 g/dl (32.0-37.0); MEAN CORPUSCULAR VOLUME 93.4 fl (82.0-101.0); MEAN PLATELET VOLUME 10.4 fl (7.4-10.4); MONOCYTE # 0.8 10^3/ul (0.3-0.9); MONOCYTES % 11.5 % (0.0-11.0); NEUTROPHIL # 5.4 10^3/ul (1.6-7.5); PLATELET COUNT 145 10^3/UL (140-415); RED BLOOD COUNT 3.79 10^6/ul (4.20-5.40); RED CELL DISTRIBUTION WIDTH 12.8 % (11.5-14.5); WHITE BLOOD COUNT 6.9 10^3/ul (4.8-10.8)
[2016-07-20 08:04] LABS: ALBUMIN 3.5 g/dl (3.3-4.9); ALBUMIN/GLOBULIN RATIO 1.25; BILIRUBIN,INDIRECT 1.2 mg/dl (0-1.1); BILIRUBIN,TOTAL 1.2 mg/dl (0.2-1.3); CALCIUM 8.4 mg/dl (8.4-10.2); CREATININE 0.83 mg/dl (0.44-1.00); POTASSIUM 3.7 mmol/L (3.5-5.1); TOTAL PROTEIN 6.3 g/dl (6.1-8.1)
[2016-07-20] MEDS: METOPROLOL 25 MG TAB PO SCH ×2 (08:38→21:39)
[2016-07-20] MEDS: ASPIRIN (EC) 81 MG TAB PO SCH (08:38)
[2016-07-20] MEDS: AMLODIPINE 5 MG TAB PO SCH (08:39)
[2016-07-20] MEDS: AZELASTINE 0.05% 6 ML OPH BOTH EYES SCH ×2 (09:25→21:34)
[2016-07-20] MEDS: ENOXAPARIN 40 MG/0.4 ML SYG SC SCH (09:34)
[2016-07-20] MEDS: HYDROmorphONE 1 MG/ML SYG IV PRN ×2 (10:38→21:55)
[2016-07-20 11:03] VITALS: BP 122/78; RESP 18
--- NOTE | 2016-07-20 11:18 | PN ---
Date/Time of Note Date/Time of Note DATE: 07/20/16 TIME: 11:10 Assessment/Plan VTE Prophylaxis VTE Prophylaxis Intervention: ambulation, LMWH Lines/Catheters IV Catheter Type (from Nrsg): Peripheral IV Urinary Cath still in place: Yes Reason Cath still needed: other (indicate) (will plan to dc soon if she continues to improve from cognitive standpoint. ) Assessment/Plan Chief Complaint/Hosp Course 89 y/o female pmh HTN, HLD, generalized OA, GERD, insomnia who was admitted to [facility] 07/15/2016 after a ground level fall 2/2 syncopal event. On admission patient was confused. The fall caused a left humeral neck fracture, now being managed conservatively. Initial head CT was negative but MRI brain w/ e/o multiple, likely embolic infarcts. TTE/duplex were unremarkable. Patient was obtunded and non verbal, made DNR per prior wishes. Now verbal with improved cognitive function. 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 Appreciate ortho recs #HTN -norvasc , metop #HLD -atorva #encephalopathy-seems to have resolved. I stopped her neurontin and most other sedating meds, could have helped -ctm #goals of care-currently DNR but now that she is coming around from a cognitive standpoint would be appropriate to have further discussions with her. Will let her rest today. More discussions tomorrow and Friday with her pcp, Dr. Flores. Subjective 24 Hr Interval Summary Free Text/Dictation Patient currently reports her pain is well controlled. She is oriented to person , place, situation. Denies constipation, urinary issues, fevers, chills, nausea , vomiting. Exam/Review of Systems Vital Signs Vitals Vital Signs Date Time Temp Pulse Resp B/P Pulse Ox O2 Delivery O2 Flow Rate FiO2 07/20/16 11:03 98.0 78 18 122/78 98 Intake and Output 07/19/16 07/19/16 07/20/16 15:00 23:00 07:00 Intake Total 1150 ml Output Total 550 ml Balance 600 ml Exam Gen: NAD, alert and oriented to person, place, situation at this time HEENT: op clear, mmm, no scleral icterus CV: rrr, nml s1/s2, no m/r/g Pulm: CTAB on anterior exam Abd: soft, nt/ND, +BS Ext: no c/c/e in lower extremities. L arm in sling Results Result Diagram: 07/20/16 0643 07/20/16 0648 Results 24 hrs Laboratory Tests Test 07/19/16 12:35 07/19/16 18:14 07/19/16 23:15 07/20/16 06:07 Bedside Glucose 138 129 150 141 Test 07/20/16 06:43 07/20/16 06:48 07/20/16 08:42 White Blood Count 6.9 # Red Blood Count 3.79 L Hemoglobin 11.7 L Hematocrit 35.4 L Mean Corpuscular Volume 93.4 Mean Corpuscular Hemoglobin 30.9 Mean Corpuscular Hemoglobin Concent 33.1 Red Cell Distribution Width 12.8 Platelet Count 145 Mean Platelet Volume 10.4 Neutrophils % 78.0 H Lymphocytes % 10.2 L Monocytes % 11.5 H Eosinophils % 0.0 Basophils % 0.0 Nucleated Red Blood Cells % 0.0 Neutrophils # 5.4 Lymphocytes # 0.7 L Monocytes # 0.8 Eosinophils # 0.0 Basophils # 0.0 Nucleated Red Blood Cells # 0.0 Sodium Level 137 Potassium Level 3.7 Chloride Level 106 Carbon Dioxide Level 25 Anion Gap 10 # Blood Urea Nitrogen 41 H Creatinine 0.83 Glucose Level 131 Calcium Level 8.4 Total Bilirubin 1.2 Direct Bilirubin 0.00 Indirect Bilirubin 1.2 H Aspartate Amino Transf (AST/SGOT) 20 Alanine Aminotransferase (ALT/SGPT) 27 Alkaline Phosphatase 77 Total Protein 6.3 Albumin 3.5 Globulin 2.80 Albumin/Globulin Ratio 1.25 Bedside Glucose 125 Medications Medications Current Medications Acetaminophen (Tylenol Tab) 650 mg Q4H PRN PO PAIN; Start 07/15/16 at 17:30 Aspirin (Halfprin) 81 mg DAILY PO Last administered on 07/20/16 08:38; Admin Dose 81 MG; Start 07/16/16 at 09:00 Docusate Sodium (Colace) 100 mg QHS PO Last administered on 07/19/16 20:47; Admin Dose 100 MG; Start 07/15/16 at 21:00 Acetaminophen/ Hydrocodone Bitart ([place] (5/325)) 1 tab Q6H PRN PO PAIN Last administered on 07/17/16 11:27; Admin Dose 1 TAB; Start 07/15/16 at 17:30 Metoprolol Tartrate (Lopressor) 25 mg BID PO Last administered on 07/20/16 08: 38; Admin Dose 25 MG; Start 07/15/16 at 21:00 Tramadol HCl (Ultram) 50 mg Q6 PO Last administered on 07/20/16 06:05; Admin Dose 50 MG; Start 07/15/16 at 18:00 Azelastine HCl (Optivar 0.05% Oph) 1 drop BID BOTH EYES Last administered on 09:25; Admin Dose 1 DROP; Start 07/17/16 at 11:30 Ondansetron HCl (Zofran Inj) 4 mg Q6H PRN IV NAUSEA AND/OR VOMITING Last administered on 07/15/16 20:14; Admin Dose 4 MG; Start 07/15/16 at 17:30 Pantoprazole (Protonix Tab) 40 mg DAILY@06 PO Last administered on 07/20/16 06 :02; Admin Dose 40 MG; Start 07/16/16 at 06:00 Amlodipine Besylate (Norvasc) 5 mg DAILY PO Last administered on 07/20/16 08: 39; Admin Dose 5 MG; Start 07/16/16 at 09:00 Enoxaparin Sodium (Lovenox) 40 mg DAILY SC Last administered on 07/20/16 09:34 ; Admin Dose 40 MG; Start 07/18/16 at 09:30 Atorvastatin Calcium 40 mg 40 mg HS PO Last administered on 07/19/16 20:47; Admin Dose 40 MG; Start 07/18/16 at 21:30 Dextrose/Sodium Chloride (D5-NS) 1,000 ml @ 100 mls/hr Q10H IV Last administered on 07/20/16 06:02; Admin Dose 100 MLS/HR; Start 07/19/16 at 10:00 Insulin Aspart (Novolog Insulin Pen) NOVOLOG *MILD* ALGORITHM Q6 SC ; Start 07/19 at 12:00 Miscellaneous Information 1 ea NOTE XX ; Start 07/19/16 at 09:30 Glucose (Glutose) 15 gm Q15M PRN PO DECREASED GLUCOSE; Start 07/19/16 at 09:30 Glucose (Glutose) 22.5 gm Q15M PRN PO DECREASED GLUCOSE; Start 07/19/16 at 09:30 Dextrose (D50w Syringe) 25 ml Q15M PRN IV DECREASED GLUCOSE; Start 07/19/16 at 09:30 Dextrose (D50w Syringe) 50 ml Q15M PRN IV DECREASED GLUCOSE; Start 07/19/16 at 09:30 Glucagon (Glucagen) 1 mg Q15M PRN IM DECREASED GLUCOSE; Start 07/19/16 at 09:30 Glucose (Glutose) 15 gm Q15M PRN BUCCAL DECREASED GLUCOSE; Start 07/19/16 at 09: 30 Hydromorphone HCl (Dilaudid) 0.5 mg Q3H PRN IV PAIN Last administered on t 10:38; Admin Dose 0.5 MG; Start 07/20/16 at 10:00 PRIYANK RUTLEDGE MD Jul 20, 2016 11:18
[2016-07-20 15:06] VITALS: BP 122/65; RESP 16
[2016-07-20 17:48] LABS: ADD UMIC YES; UR BILIRUBIN (Dip) NEGATIVE (NEGATIVE); UR BLOOD (Dip) 3+ (NEGATIVE); UR CLARITY SLIGHTLY CLOUDY (CLEAR); UR COLOR LT. YELLOW (YELLOW); UR KETONES (Dip) NEGATIVE (NEGATIVE); UR LEUKOCYTE ESTERASE (Dip) 1+ (NEGATIVE); UR NITRITE (Dip) NEGATIVE (NEGATIVE); UR TOTAL PROTEIN (Dip) NEGATIVE (NEGATIVE); UR UROBILINOGEN (Dip) 1.0 E.U./dL (0.1-1.0)
[2016-07-20 18:03] LABS: UR BACTERIA FEW
[2016-07-20 20:22] VITALS: BP 142/94; RESP 17
[2016-07-20] MEDS: ATORVASTATIN 40 MG TAB PO SCH (21:34)
[2016-07-20] MEDS: DOCUSATE SODIUM 100 MG CAP PO SCH (21:34)
[2016-07-21] MEDS: DEXTROSE 5%-0.9% NACL 1,000 ML IV SCH ×3 (00:52→12:48)
[2016-07-21] MEDS: HYDROmorphONE 1 MG/ML SYG IV PRN ×3 (01:08→21:24)
[2016-07-21 05:13] LABS: ADD SCAN DIFF NO
[2016-07-21 05:25] LABS: ABNORMAL IP MESSAGE 1; HEMATOCRIT 35.2 % (37.0-47.0); HEMOGLOBIN 11.4 g/dl (12.0-16.0); LYMPHOCYTES # 0.6 10^3/ul (0.8-2.9); LYMPHOCYTES % 9.9 % (15.0-51.0); MEAN CORPUSCULAR HEMOGLOBIN 30.1 pg (29.0-33.0); MEAN CORPUSCULAR HGB CONC 32.4 g/dl (32.0-37.0); MEAN CORPUSCULAR VOLUME 92.9 fl (82.0-101.0); MONOCYTE # 0.7 10^3/ul (0.3-0.9); MONOCYTES % 12.6 % (0.0-11.0); NEUTROPHIL # 4.3 10^3/ul (1.6-7.5); NEUTROPHILS % 77.1 % (39.0-77.0); PLATELET COUNT 154 10^3/UL (140-415); RED BLOOD COUNT 3.79 10^6/ul (4.20-5.40); RED CELL DISTRIBUTION WIDTH 12.5 % (11.5-14.5); WHITE BLOOD COUNT 5.5 10^3/ul (4.8-10.8)
[2016-07-21] MEDS: INSULIN ASPART [NOVOLOG] 3 ML PEN SC SCH (06:00)
[2016-07-21] MEDS: traMADol 50 MG TAB PO SCH ×3 (06:27→18:00)
[2016-07-21] MEDS: PANTOPRAZOLE (EC) 40 MG TAB PO SCH (06:27)
[2016-07-21 07:57] VITALS: BP 161/79; RESP 19
[2016-07-21] MEDS: AMLODIPINE 5 MG TAB PO SCH (09:45)
[2016-07-21] MEDS: ASPIRIN (EC) 81 MG TAB PO SCH (09:46)
[2016-07-21] MEDS: METOPROLOL 25 MG TAB PO SCH ×2 (09:46→21:12)
[2016-07-21] MEDS: AZELASTINE 0.05% 6 ML OPH BOTH EYES SCH ×2 (09:46→21:00)
[2016-07-21] MEDS: ENOXAPARIN 40 MG/0.4 ML SYG SC SCH (09:47)
--- NOTE | 2016-07-21 11:44 | PN ---
Date/Time of Note Date/Time of Note DATE: 07/21/16 TIME: 11:40 Assessment/Plan VTE Prophylaxis VTE Prophylaxis Intervention: LMWH Lines/Catheters IV [facility] Type ([facility]): Peripheral IV Urinary Cath still in place: Yes Reason Cath still needed: other (indicate) (confused) Assessment/Plan Chief Complaint/Hosp Course 89 y/o female pmh HTN, HLD, generalized OA, GERD, insomnia who was admitted to [facility] 07/15/2016 after a ground level fall 2/2 syncopal event. On admission patient was confused. The fall caused a left humeral neck fracture, now being managed conservatively. Initial head CT was negative but MRI brain w/ e/o multiple, likely embolic infarcts. TTE/duplex were unremarkable. Patient was obtunded and non verbal, made DNR per prior wishes. Now verbal with improved cognitive function. 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 Enterococcus, proteus -cipro 250 mg po BID x 3 days #Left humeral fracture -conservative non operative management for now. Appreciate ortho recs #HTN -norvasc , metop #HLD -atorva #encephalopathy-waxing and waning. UTI could be worsening -avoid sedating meds -treat UTI -ctm #goals of care-currently DNR but now that she is coming around from a cognitive standpoint would be appropriate to have further discussions with her. Confused today. Will discontinue accuchecks, barely eating and BG well controlled. More discussions tomorrow with her pcp, Dr. Flores. Subjective 24 Hr Interval Summary Free Text/Dictation Patient confused this am but directable. Found to have UTI. Refusing meds this am initially but after encouragement took with apple sauce. Denies any pain at this time. Exam/Review of Systems Vital Signs Vitals Vital Signs Date Time Temp Pulse Resp B/P Pulse Ox O2 Delivery O2 Flow Rate FiO2 07/21/16 07:57 97.5 89 19 161/79 98 Intake and Output 07/20/16 07/20/16 07/21/16 14:59 22:59 06:59 Intake Total 1160 ml 1360 ml Output Total 825 ml 700 ml Balance 335 ml 660 ml Exam Gen: NAD, confused HEENT: op clear, mmm, no scleral icterus CV: rrr, nml s1/s2, no m/r/g Pulm: CTAB on anterior exam Abd: soft, nt/ND, +BS Ext: no c/c/e in lower extremities. L arm in sling Results Result Diagram: 07/21/16 0435 07/20/16 0648 Results 24 hrs Laboratory Tests Test 07/20/16 13:13 07/20/16 17:30 07/20/16 17:40 07/20/16 23:54 Bedside Glucose 130 136 133 Urine Color LT. YELLOW Urine Clarity SLIGHTLY CLOUDY Urine pH 7.0 Urine Specific [place] 1.015 Urine Ketones NEGATIVE Urine Nitrite NEGATIVE Urine Bilirubin NEGATIVE Urine Urobilinogen 1.0 E.U./dL Urine Leukocyte Esterase 1+ H Urine Microscopic RBC 5-10 Urine Microscopic WBC 10-25 Urine Bacteria FEW Urine Hemoglobin 3+ H Urine Glucose 0.1% H Urine Total Protein NEGATIVE Test 07/21/16 04:35 07/21/16 06:29 White Blood Count 5.5 # Red Blood Count 3.79 L Hemoglobin 11.4 L Hematocrit 35.2 L Mean Corpuscular Volume 92.9 Mean Corpuscular Hemoglobin 30.1 Mean Corpuscular Hemoglobin Concent 32.4 Red Cell Distribution Width 12.5 Platelet Count 154 Mean Platelet Volume 10.0 Neutrophils % 77.1 H Lymphocytes % 9.9 L Monocytes % 12.6 H Eosinophils % 0.0 Basophils % 0.0 Nucleated Red Blood Cells % 0.0 Neutrophils # 4.3 Lymphocytes # 0.6 L Monocytes # 0.7 Eosinophils # 0.0 Basophils # 0.0 Nucleated Red Blood Cells # 0.0 Bedside Glucose 133 Medications Medications Current Medications Acetaminophen (Tylenol Tab) 650 mg Q4H PRN PO PAIN; Start 07/15/16 at 17:30 Aspirin (Halfprin) 81 mg DAILY PO Last administered on 07/21/16 09:46; Admin Dose 81 MG; Start 07/16/16 at 09:00 Docusate Sodium (Colace) 100 mg QHS PO Last administered on 07/20/16 21:34; Admin Dose 100 MG; Start 07/15/16 at 21:00 Acetaminophen/ Hydrocodone Bitart ([place] (5/325)) 1 tab Q6H PRN PO PAIN Last administered on 07/17/16 11:27; Admin Dose 1 TAB; Start 07/15/16 at 17:30 Metoprolol Tartrate (Lopressor) 25 mg BID PO Last administered on 07/21/16 09: 46; Admin Dose 25 MG; Start 07/15/16 at 21:00 Tramadol HCl (Ultram) 50 mg Q6 PO Last administered on 07/21/16 06:27; Admin Dose 50 MG; Start 07/15/16 at 18:00 Azelastine HCl (Optivar 0.05% Oph) 1 drop BID BOTH EYES Last administered on 09:46; Admin Dose 1 DROP; Start 07/17/16 at 11:30 Ondansetron HCl (Zofran Inj) 4 mg Q6H PRN IV NAUSEA AND/OR VOMITING Last administered on 07/15/16 20:14; Admin Dose 4 MG; Start 07/15/16 at 17:30 Pantoprazole (Protonix Tab) 40 mg DAILY@06 PO Last administered on 07/21/16 06 :27; Admin Dose 40 MG; Start 07/16/16 at 06:00 Amlodipine Besylate (Norvasc) 5 mg DAILY PO Last administered on 07/21/16 09: 45; Admin Dose 5 MG; Start 07/16/16 at 09:00 Enoxaparin Sodium (Lovenox) 40 mg DAILY SC Last administered on 07/21/16 09:47 ; Admin Dose 40 MG; Start 07/18/16 at 09:30 Atorvastatin Calcium 40 mg 40 mg HS PO Last administered on 07/20/16 21:34; Admin Dose 40 MG; Start 07/18/16 at 21:30 Dextrose/Sodium Chloride (D5-NS) 1,000 ml @ 100 mls/hr Q10H IV Last administered on 07/21/16 02:26; Admin Dose 100 MLS/HR; Start 07/19/16 at 10:00 Hydromorphone HCl (Dilaudid) 0.5 mg Q3H PRN IV PAIN Last administered on 05:05; Admin Dose 0.5 MG; Start 07/20/16 at 10:00 Ciprofloxacin (Cipro) 250 mg BID@06,18 PO ; Start 6/11/17 at 12:00; Stop at 11:59 PRIYANK RUTLEDGE MD Jul 21, 2016 11:44
[2016-07-21] MEDS: CIPROFLOXACIN 250 MG TAB PO SCH ×3 (12:50→21:11)
[2016-07-21 19:27] VITALS: BP 172/83; RESP 18
[2016-07-21] MEDS: DOCUSATE SODIUM 100 MG CAP PO SCH (21:11)
[2016-07-21] MEDS: ATORVASTATIN 40 MG TAB PO SCH (21:11)
[2016-07-22] MEDS: DEXTROSE 5%-0.9% NACL 1,000 ML IV SCH ×4 (00:54→22:43)
[2016-07-22] MEDS: HYDROmorphONE 1 MG/ML SYG IV PRN ×3 (01:51→20:59)
[2016-07-22] MEDS: traMADol 50 MG TAB PO SCH ×2 (06:00)
[2016-07-22] MEDS: PANTOPRAZOLE (EC) 40 MG TAB PO SCH (06:00)
--- NOTE | 2016-07-22 08:12 | PN ---
Date/Time of Note Date/Time of Note DATE: 07/22/16 TIME: 08:07 Assessment/Plan VTE Prophylaxis VTE Prophylaxis Intervention: LMWH Lines/Catheters IV Catheter Type (from Nrs): Peripheral IV Urinary Cath still in place: Yes Reason Cath still needed: urinary retention Assessment/Plan Chief Complaint/Hosp Course 1. 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 CAT scan done today shows a completed CVA in R cerebrum .She is not taking PO . I will start IV fluids and follow . She is now lethargic and not responsive . She is now a DNR . 2. Fracture of left proximal humerus, ortho is seeing patient . 3. Debility 4. BP is elevated . 5. Neurology consultation , neuro w/u is in progress 6. Hypertension, BP is elevated today. Will restart amlodipine. 7. will start discharge planning , consider transfer to SNF/rehab Problems: Subjective 24 Hr Interval Summary Free Text/Dictation she is lethargic and barely responsive . Subjective hx not possible: pt non-verbal Respiratory: no complaints Cardiovascular: no complaints Gastrointestinal: decreased appetite, no complaints Exam/Review of Systems Vital Signs Vitals Vital Signs Date Time Temp Pulse Resp B/P Pulse Ox O2 Delivery O2 Flow Rate FiO2 07/21/16 19:27 98.2 91 18 172/83 94 Intake and Output 07/21/16 07/21/16 07/22/16 15:00 23:00 07:00 Intake Total 700 ml 500 ml 200 ml Balance 700 ml 500 ml 200 ml Exam Constitutional: frail, non-verbal Respiratory: clear to auscultation, diminished breath sounds Cardiovascular: regular rate and rhythm Gastrointestinal: soft Musculoskeletal: nl extremities to inspection Results Result Diagram: 07/21/16 0435 07/20/16 0648 Medications Medications Current Medications Acetaminophen (Tylenol Tab) 650 mg Q4H PRN PO PAIN; Start 07/15/16 at 17:30 Aspirin (Halfprin) 81 mg DAILY PO Last administered on 07/21/16 09:46; Admin Dose 81 MG; Start 07/16/16 at 09:00 Docusate Sodium (Colace) 100 mg QHS PO Last administered on 07/21/16 21:11; Admin Dose 100 MG; Start 07/15/16 at 21:00 Acetaminophen/ Hydrocodone Bitart ([place] (5/325)) 1 tab Q6H PRN PO PAIN Last administered on 07/17/16 11:27; Admin Dose 1 TAB; Start 07/15/16 at 17:30 Metoprolol Tartrate (Lopressor) 25 mg BID PO Last administered on 07/21/16 21: 12; Admin Dose 25 MG; Start 07/15/16 at 21:00 Tramadol HCl (Ultram) 50 mg Q6 PO Last administered on 07/21/16 12:48; Admin Dose 50 MG; Start 07/15/16 at 18:00 Azelastine HCl (Optivar 0.05% Oph) 1 drop BID BOTH EYES Last administered on 21:00; Admin Dose 1 DROP; Start 07/17/16 at 11:30 Ondansetron HCl (Zofran Inj) 4 mg Q6H PRN IV NAUSEA AND/OR VOMITING Last administered on 07/15/16 20:14; Admin Dose 4 MG; Start 07/15/16 at 17:30 Pantoprazole (Protonix Tab) 40 mg DAILY@06 PO Last administered on 07/21/16 06 :27; Admin Dose 40 MG; Start 07/16/16 at 06:00 Amlodipine Besylate (Norvasc) 5 mg DAILY PO Last administered on 07/21/16 09: 45; Admin Dose 5 MG; Start 07/16/16 at 09:00 Enoxaparin Sodium (Lovenox) 40 mg DAILY SC Last administered on 07/21/16 09:47 ; Admin Dose 40 MG; Start 07/18/16 at 09:30 Atorvastatin Calcium 40 mg 40 mg HS PO Last administered on 07/21/16 21:11; Admin Dose 40 MG; Start 07/18/16 at 21:30 Dextrose/Sodium Chloride (D5-NS) 1,000 ml @ 100 mls/hr Q10H IV Last administered on 07/22/16 00:54; Admin Dose 100 MLS/HR; Start 07/19/16 at 10:00 Hydromorphone HCl (Dilaudid) 0.5 mg Q3H PRN IV PAIN Last administered on 01:51; Admin Dose 0.5 MG; Start 07/20/16 at 10:00 Ciprofloxacin (Cipro) 250 mg BID@06,18 PO Last administered on 07/21/16t 21:11 ; Admin Dose 250 MG; Start 07/21/16 at 12:00; Stop 07/24/16 at 11:59 TACOS BERNAL MD Jul 22, 2016 08:12
[2016-07-22 08:30] VITALS: BP 148/85; RESP 18
[2016-07-22] MEDS: ENOXAPARIN 40 MG/0.4 ML SYG SC SCH (09:53)
[2016-07-22] MEDS: CIPROFLOXACIN 200 MG/D5W IVPB 100 ML IVPB SCH ×2 (09:53→20:44)
[2016-07-22] MEDS: AZELASTINE 0.05% 6 ML OPH BOTH EYES SCH ×2 (09:53→20:45)
[2016-07-22] MEDS: PANTOPRAZOLE 40 MG INJ IV SCH (09:59)
[2016-07-22] MEDS: ENALAPRILAT 1.25 MG INJ IV SCH ×2 (12:37→19:12)
--- NOTE | 2016-07-22 12:37 | RADRPT ---
PROCEDURE: XR Shoulder. CLINICAL INDICATION: Pain status post fall. TECHNIQUE: Left shoulder x-rays, AP and transscapular Y views. COMPARISON: Chest x-ray 07/18/2016. Left shoulder x-ray 07/18/2016. FINDINGS: Bone density appears decreased. There is a comminuted displaced fracture of the surgical neck, whic h is grossly unchanged. Mild anteromedial displacement of the distal humeral diaphysis is observed. The humeral head maintains its articulation with the glenoid fossa. The acromioclavicular joint i s intact. IMPRESSION: Unchanged appearance of a displaced fracture of the surgical neck of the humerus. No evidence of sh oulder dislocation. RPTAT: HLST .Neli Aguilar MD, MD Date Time Electronically viewed and signed by .Neli Aguilar MD, MD on 07/22/2016 12:36 .T/
--- NOTE | 2016-07-22 16:37 | PN ---
DATE: 07/22/2016 After several occasions of adjustment, x-rays of the left shoulder was repeated today. The fracture seems to be healing in a less than ideal position. Possible surgical intervention in the form of o pen reduction and internal fixation under general anesthesia was discussed with Dr. Flores; emilia nails, because of her poor general condition, it was decided not to carry out aggressive surgical inte rvention at this time. We will try to accept the present alignment and see if we can achieve limite d motion of the left elbow without too much pain. If it is necessary, possibility of a hemiarthropl asty of the left shoulder could be considered later on if and when her general condition could be im proved. Dictated By: KELSEY MINA/JOSEFINA Conf#: [id number] DID#: [id number]
[2016-07-22] MEDS: ONDANSETRON 4 MG INJ IV PRN (20:42)
[2016-07-22] MEDS: DOCUSATE SODIUM 100 MG CAP PO SCH (20:52)
[2016-07-22 21:13] VITALS: BP 162/74; RESP 18
[2016-07-22 23:50] VITALS: BP 132/74; PULSE 98; RESP 18
[2016-07-23] MEDS: ENALAPRILAT 1.25 MG INJ IV SCH ×5 (00:12→23:50)
[2016-07-23 00:13] VITALS: BP 177/74; PULSE 84; RESP 18
[2016-07-23 01:43] VITALS: BP 142/62; PULSE 90; RESP 17
[2016-07-23] MEDS: DEXTROSE 5%-0.9% NACL 1,000 ML IV SCH ×4 (03:52→23:24)
[2016-07-23] MEDS: PANTOPRAZOLE 40 MG INJ IV SCH (05:45)
[2016-07-23] MEDS: ONDANSETRON 4 MG INJ IV PRN ×2 (05:45→20:05)
[2016-07-23 05:48] VITALS: BP 149/68; PULSE 88; RESP 18
[2016-07-23] MEDS: AZELASTINE 0.05% 6 ML OPH BOTH EYES SCH ×2 (08:20→20:15)
[2016-07-23] MEDS: CIPROFLOXACIN 200 MG/D5W IVPB 100 ML IVPB SCH ×2 (08:20→20:15)
[2016-07-23] MEDS: ENOXAPARIN 40 MG/0.4 ML SYG SC SCH (08:28)
[2016-07-23 08:37] VITALS: BP 140/68; RESP 19
--- NOTE | 2016-07-23 13:10 | CONS ---
Date/Time of Note Date/Time of Note DATE: 07/23/16 TIME: 12:50 Assessment/Plan Assessment/Plan Additional Assessment/Plan I will contact Dr. Bhandari first before contacting Kristin. Patient's CODE STATUS has been addressed already by Dr. Maggie Velasquez I will follow-up on acceptable quality of life with patient if she improves. Otherwise with her spokesperson I do not believe based on what I reviewed in the chart there are there any culture issues. Communication issue will be addressed with caregiver and goals of care should be addressed her palliative performance scale is extremely low at 20% . I believe all those concerns have been addressed by Dr. Bhandari prior. Consider POLST prior to discharge. At this time patient is a candidate for hospice care but qualifies only outside of hospital. Will not refer to hospice care until discussing in more detail with Dr. Bhandari and patient's caregiver. Consultation Date/Type/Reason Admit Date/Time Jul 17, 2016 at 08:13 Date of Consultation: Jul 23, 2016 Hx of Present Illness This is a 82-year-old female who was admitted [facility] on 07/15/2016 who has a history of mechanical fall, ground-level with a fracture to her left humerus .She was confused on admission and throughout hospice course has continued to be somnolent when aroused and answer questions but she is confused and frequently forgets . She was noted to have some neurological findings on examination that were concerning including weakness of her left lower extremity left hand and left left upper extremity was difficult to evaluate secondary to fracture of the humerus also had left lateral gaze preference. 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 She is completely amnestic to her fall further is unable to give me any history of her ambulatory status prior to hospitalization. She is DO NOT RESUSCITATE I will speak to Dr. Bhandari about the person who is making decisions on her behalf. I do have phone number for Kristin at area code [phone] . Constitutional: disoriented Eyes: no complaints ENT: no complaints Respiratory: no complaints Cardiovascular: no complaints Gastrointestinal: decreased appetite, no complaints Genitourinary: no complaints Musculoskeletal: restricted range of motion Skin: no complaints Neurologic: headache Endocrine: no complaints Lymphatic: no complaints Psychological: confusion Immunologic: no complaints, other (Cannot participate in review of systems) Past Medical History Medical History: hypertension, other (chronic pain syndrome,) Family History Significant Family History: other (unknown) Social History Alcohol Use: none Smoking Status: Unknown if ever smoked Drug Use: none Exam/Review of Systems Vital Signs Vitals Vital Signs Date Time Temp Pulse Resp B/P Pulse Ox O2 Delivery O2 Flow Rate FiO2 07/23/16 08:37 97.8 89 19 140/68 100 07/23/16 05:48 Room Air Intake and Output 07/22/16 07/22/16 07/23/16 15:00 23:00 07:00 Intake Total 1300 ml 890 ml 660 ml Balance 1300 ml 890 ml 660 ml Exam Constitutional: frail, other (wn wd in nad ), No alert, No distress, No non-verbal, No obese, No oriented, No well developed Head: No atraumatic, No hematomas, No lacerations, No normocephalic, No other Eyes: PERRL, No EOMI, No fundi, disc, No icteric, No nl conjunctiva, No nl lids, No nl sclera, No other ENMT: No intubated, No mucosa pink and moist, No nl external ears & nose, No nl lips & teeth, No nl nasal mucosa & septum, No other, No tympanic membranes Neck: No bruits, No jvd, No masses, No non-tender, No nuchal rigidity, No other , No supple, No thyromegaly Respiratory: diminished breath sounds, other (clear to aus), No clear to auscultation, No congested cough, No crackles/rales, No intercostal retraction, No labored breathing, No normal air movement, No respirations, No tactile fremitus, No wheezing Cardiovascular: other (normal rate and rhythm withou S3 S4), No S3, No S4, No bruits, No diastolic murmur, No edema, No gallop, No irregular rhythm, No jugular venous distention (JVD), No murmurs/extra sounds, No nl pulses, No regular rate and rhythm, No rub, No systolic murmur Extremities: No calf tenderness, No clubbing, No cyanosis, No edema, No normal pulses, No other, No palpable cord, No pitting pedal edema, No tenderness Neurological: GRAB DRIVER II-XII intact, DTR's symmetric, confused (lethargic , confused, cooperative oriented times one person cannot ascess motor cn grossly intact), focal weakness, lethargic, nl mental status, nl speech, nl strength, numbness, other, reflexes, unresponsive Results Result Diagram: 07/21/16 0435 07/20/16 0648 Medications Medications Current Medications Acetaminophen (Tylenol Tab) 650 mg Q4H PRN PO PAIN; Start 07/15/16 at 17:30 Docusate Sodium (Colace) 100 mg QHS PO Last administered on 07/21/16 21:11; Admin Dose 100 MG; Start 07/15/16 at 21:00 Azelastine HCl (Optivar 0.05% Oph) 1 drop BID BOTH EYES Last administered on 08:20; Admin Dose 1 DROP; Start 07/17/16 at 11:30 Ondansetron HCl (Zofran Inj) 4 mg Q6H PRN IV NAUSEA AND/OR VOMITING Last administered on 07/23/16 05:45; Admin Dose 4 MG; Start 07/15/16 at 17:30 Enoxaparin Sodium 40 mg 40 mg DAILY SC Last administered on 07/23/16 08:28; Admin Dose 40 MG; Start 07/18/16 at 09:30 Dextrose/Sodium Chloride (D5-NS) 1,000 ml @ 100 mls/hr Q10H IV Last administered on 07/23/16 08:20; Admin Dose 100 MLS/HR; Start 07/19/16 at 10:00 Hydromorphone HCl (Dilaudid) 0.5 mg Q3H PRN IV PAIN Last administered on 20:59; Admin Dose 0.5 MG; Start 07/20/16 at 10:00 Enalaprilat 1.25 mg 1.25 mg Q6 IV Last administered on 07/23/16 05:45; Admin Dose 1.25 MG; Start 07/22/16 at 12:00 Ciprofloxacin/ Dextrose (Cipro Ivpb) 100 ml @ 100 mls/hr Q12 IVPB Last administered on 07/23/16 08:20; Admin Dose 100 MLS/HR; Start 07/22/16 at 09:00 Pantoprazole (Protonix Iv) 40 mg DAILY@06 IV Last administered on 07/23/16t 05: 45; Admin Dose 40 MG; Start 07/22/16 at 09:00 SHARI DIANE Jul 23, 2016 13:01
--- NOTE | 2016-07-23 13:13 | CONS ---
Date/Time of Note Date/Time of Note DATE: 07/23/16 TIME: 13:12 Assessment/Plan Assessment/Plan Chief Complaint/Hosp Course This is a 82-year-old female who was admitted [facility] on 07/15/2016 who has a history of mechanical fall, ground-level with a fracture to her left humerus .She was confused on admission and throughout hospice course has continued to be somnolent when aroused and answer questions but she is confused and frequently forgets . She was noted to have some neurological findings on examination that were concerning including weakness of her left lower extremity left hand and left left upper extremity was difficult to evaluate secondary to fracture of the humerus also had left lateral gaze preference. 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 She is completely amnestic to her fall further is unable to give me any history of her ambulatory status prior to hospitalization. She is DO NOT RESUSCITATE I will speak to Dr. Flores about the person who is making decisions on her behalf. I do have phone number for Kristin at area code [phone] . Problems: Additional Assessment/Plan Addendum to my prior prior note July 23. Errors occurred patient was not able to participate in review of systems. Neurological examination oriented 1 person Cranial nerves grossly intact Cannot assess motor sensory finding Consultation Date/Type/Reason Admit Date/Time Jul 17, 2016 at 08:13 Initial Consult Date 07/23/16 Type of Consultation: Neurology Exam/Review of Systems Vital Signs Vitals Vital Signs Date Time Temp Pulse Resp B/P Pulse Ox O2 Delivery O2 Flow Rate FiO2 07/23/16 08:37 97.8 89 19 140/68 100 07/23/16 05:48 Room Air Intake and Output 07/22/16 07/22/16 07/23/16 15:00 23:00 07:00 Intake Total 1300 ml 890 ml 660 ml Balance 1300 ml 890 ml 660 ml Results Result Diagram: 07/21/16 0435 07/20/16 0648 Medications Medications Current Medications Acetaminophen (Tylenol Tab) 650 mg Q4H PRN PO PAIN; Start 07/15/16 at 17:30 Docusate Sodium (Colace) 100 mg QHS PO Last administered on 07/21/16t 21:11; Admin Dose 100 MG; Start 07/15/16 at 21:00 Azelastine HCl (Optivar 0.05% Oph) 1 drop BID BOTH EYES Last administered on 08:20; Admin Dose 1 DROP; Start 07/17/16 at 11:30 Ondansetron HCl (Zofran Inj) 4 mg Q6H PRN IV NAUSEA AND/OR VOMITING Last administered on 07/23/16 05:45; Admin Dose 4 MG; Start 07/15/16 at 17:30 Enoxaparin Sodium 40 mg 40 mg DAILY SC Last administered on 07/23/16 08:28; Admin Dose 40 MG; Start 07/18/16 at 09:30 Dextrose/Sodium Chloride (D5-NS) 1,000 ml @ 100 mls/hr Q10H IV Last administered on 07/23/16 08:20; Admin Dose 100 MLS/HR; Start 07/19/16 at 10:00 Hydromorphone HCl (Dilaudid) 0.5 mg Q3H PRN IV PAIN Last administered on 20:59; Admin Dose 0.5 MG; Start 07/20/16 at 10:00 Enalaprilat 1.25 mg 1.25 mg Q6 IV Last administered on 07/23/16 05:45; Admin Dose 1.25 MG; Start 07/22/16 at 12:00 Ciprofloxacin/ Dextrose (Cipro Ivpb) 100 ml @ 100 mls/hr Q12 IVPB Last administered on 07/23/16 08:20; Admin Dose 100 MLS/HR; Start 07/22/16 at 09:00 Pantoprazole (Protonix Iv) 40 mg DAILY@06 IV Last administered on 07/23/16 05: 45; Admin Dose 40 MG; Start 07/22/16 at 09:00 SHARI DIANE Jul 23, 2016 13:13
--- NOTE | 2016-07-23 13:41 | PQ ---
Date/Time of Note Date/Time of Note DATE: 07/23/16 TIME: 13:17 Physician Query Documentation Clarification Dear Dr. Pradhan, A review of the medical record found a need for documentation clarification. 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 UTI could be worsening -avoid sedating meds -treat UTI Based on your medical judgment, can you further clarify the type of encephalopathy? To facilitate accurate and complete coding, please yamile ( x ) the suspected diagnosis that apply: ( ) metabolic encephalopathy ( ) encephalopathy assoc. with CVA ( ) Others Please provide your response by clicking edit document, making your choice ( x ), click ok/save and finally click sign. You may also document your response on your progress notes. Thank you for your time. With appreciation, Michael Botello RN, BSN, CCS, CCDS Clinical [employer] Management, CD[employer] and Coding Services [phone] Room # 1525 - Coding [address]~ [address] MICHAEL BOTELLO Jul 23, 2016 13:41
--- NOTE | 2016-07-23 14:17 | CONS ---
Date/Time of Note Date/Time of Note DATE: 07/23/16 TIME: 14:10 Assessment/Plan Assessment/Plan Chief Complaint/Hosp Course 1. Syncope , CVA , She is now a DNR . 2. Fracture of left proximal humerus, ortho is seeing patient . Dr. Méndez discussed with me the various options of her care regarding the left humerus fracture. He would like to do surgery to do an open reduction and internal fixation. However I think that the patient is not stable enough at this time to undergo general anesthesia. We will continue her current management which is immobilization of the left arm. 3. Debility 4. BP is elevated . 5. Right CVA with left hemiparesis 6. Hypertension, BP is elevated today. Will restart amlodipine. 7. will start discharge planning , consider transfer to SNF/rehab , palliative care has been called and Dr. Hoover is seeing the patient. Problems: Consultation Date/Type/Reason Admit Date/Time Jul 17, 2016 at 08:13 Type of Consultation: Neurology 24 HR Interval Summary Free Text/Dictation She is awake and responsive today. She knows that she is in the hospital. Somebody is helping her with her lunch and she is eating some. She recognizes me. Constitutional: no complaints Exam/Review of Systems Vital Signs Vitals Vital Signs Date Time Temp Pulse Resp B/P Pulse Ox O2 Delivery O2 Flow Rate FiO2 07/23/16 08:37 97.8 89 19 140/68 100 07/23/16 05:48 Room Air Intake and Output 07/22/16 07/22/16 07/23/16 15:00 23:00 07:00 Intake Total 1300 ml 890 ml 660 ml Balance 1300 ml 890 ml 660 ml Exam She has a left hemiparesis. Her left arm is in a sling. Constitutional: alert, frail Respiratory: clear to auscultation, diminished breath sounds Cardiovascular: regular rate and rhythm Gastrointestinal: soft Musculoskeletal: nl extremities to inspection Neurological: confused Results Result Diagram: 07/21/16 0435 07/20/16 0648 Medications Medications Current Medications Acetaminophen (Tylenol Tab) 650 mg Q4H PRN PO PAIN; Start 07/15/16 at 17:30 Docusate Sodium (Colace) 100 mg QHS PO Last administered on 07/21/16t 21:11; Admin Dose 100 MG; Start 07/15/16 at 21:00 Azelastine HCl (Optivar 0.05% Oph) 1 drop BID BOTH EYES Last administered on 08:20; Admin Dose 1 DROP; Start 07/17/16 at 11:30 Ondansetron HCl (Zofran Inj) 4 mg Q6H PRN IV NAUSEA AND/OR VOMITING Last administered on 07/23/16 05:45; Admin Dose 4 MG; Start 07/15/16 at 17:30 Enoxaparin Sodium 40 mg 40 mg DAILY SC Last administered on 07/23/16 08:28; Admin Dose 40 MG; Start 07/18/16 at 09:30 Dextrose/Sodium Chloride (D5-NS) 1,000 ml @ 100 mls/hr Q10H IV Last administered on 07/23/16 08:20; Admin Dose 100 MLS/HR; Start 07/19/16 at 10:00 Hydromorphone HCl (Dilaudid) 0.5 mg Q3H PRN IV PAIN Last administered on 20:59; Admin Dose 0.5 MG; Start 07/20/16 at 10:00 Enalaprilat 1.25 mg 1.25 mg Q6 IV Last administered on 07/23/16 12:49; Admin Dose 1.25 MG; Start 07/22/16 at 12:00 Ciprofloxacin/ Dextrose (Cipro Ivpb) 100 ml @ 100 mls/hr Q12 IVPB Last administered on 07/23/16 08:20; Admin Dose 100 MLS/HR; Start 07/22/16 at 09:00 Pantoprazole (Protonix Iv) 40 mg DAILY@06 IV Last administered on 07/23/16 05: 45; Admin Dose 40 MG; Start 07/22/16 at 09:00 TACOS BERNAL MD Jul 23, 2016 14:17
[2016-07-23 19:48] VITALS: BP 159/80; RESP 20
[2016-07-23] MEDS: DOCUSATE SODIUM 100 MG CAP PO SCH (20:06)
[2016-07-23] MEDS: HYDROmorphONE 1 MG/ML SYG IV PRN (23:44)
[2016-07-23 23:50] VITALS: BP 190/95; PULSE 87; RESP 18
[2016-07-24 00:20] VITALS: BP 180/89; PULSE 99; RESP 17
[2016-07-24 04:59] LABS: ADD SCAN DIFF NO
[2016-07-24 05:08] LABS: ABNORMAL IP MESSAGE 1; BASOPHILS % 0.1 % (0.0-2.0); HEMATOCRIT 38.6 % (37.0-47.0); HEMOGLOBIN 12.7 g/dl (12.0-16.0); LYMPHOCYTES # 0.5 10^3/ul (0.8-2.9); LYMPHOCYTES % 3.5 % (15.0-51.0); MEAN CORPUSCULAR HEMOGLOBIN 29.9 pg (29.0-33.0); MEAN CORPUSCULAR HGB CONC 32.9 g/dl (32.0-37.0); MEAN CORPUSCULAR VOLUME 90.8 fl (82.0-101.0); MEAN PLATELET VOLUME 9.6 fl (7.4-10.4); NEUTROPHIL # 11.4 10^3/ul (1.6-7.5); NEUTROPHILS % 87.9 % (39.0-77.0); PLATELET COUNT 183 10^3/UL (140-415); RED BLOOD COUNT 4.25 10^6/ul (4.20-5.40); RED CELL DISTRIBUTION WIDTH 12.3 % (11.5-14.5)
[2016-07-24] MEDS: ENALAPRILAT 1.25 MG INJ IV SCH ×3 (05:23→17:29)
[2016-07-24] MEDS: PANTOPRAZOLE 40 MG INJ IV SCH (05:23)
[2016-07-24] MEDS: ACETAMINOPHEN 325 MG TAB PO PRN (05:25)
[2016-07-24 05:30] VITALS: BP 179/82; PULSE 105; RESP 18
[2016-07-24 06:44] LABS: ALBUMIN/GLOBULIN RATIO 1.29; BILIRUBIN,INDIRECT 1.2 mg/dl (0-1.1); BILIRUBIN,TOTAL 1.2 mg/dl (0.2-1.3); CALCIUM 9.4 mg/dl (8.4-10.2); CREATININE 0.53 mg/dl (0.44-1.00); MAGNESIUM 1.6 mg/dl (1.7-2.5); TOTAL PROTEIN 7.1 g/dl (6.1-8.1)
[2016-07-24 06:48] LABS: POTASSIUM 2.3 mmol/L (3.5-5.1)
[2016-07-24 07:00] VITALS: BP 149/84; RESP 18
[2016-07-24] MEDS: DEXTROSE 5%-0.9% NACL 1,000 ML IV SCH ×3 (07:07→20:00)
[2016-07-24 07:09] VITALS: BP 158/78; PULSE 97; RESP 18
[2016-07-24] MEDS ORDERED: POTASSIUM CHLORIDE 20 MEQ in SOD CHLORIDE 0.9% 100 ML IVPB ONE (07:30)
[2016-07-24] MEDS ORDERED: POTASSIUM CHLORIDE 20 MEQ in DEXTROSE 5% 100 ML IVPB ONE (07:30)
[2016-07-24] MEDS: CIPROFLOXACIN 200 MG/D5W IVPB 100 ML IVPB SCH ×2 (08:16→20:42)
[2016-07-24] MEDS: HYDROmorphONE 1 MG/ML SYG IV PRN ×2 (08:16→16:56)
[2016-07-24] MEDS: AZELASTINE 0.05% 6 ML OPH BOTH EYES SCH ×2 (08:16→20:41)
[2016-07-24] MEDS: ENOXAPARIN 40 MG/0.4 ML SYG SC SCH (08:23)
[2016-07-24] MEDS ORDERED: POTASSIUM CHLORIDE 250 ML IVPB SCH (11:30)
[2016-07-24] MEDS ORDERED: MAGNESIUM SULFATE 2 GM/50 ML 50 ML IVPB SCH (11:30)
[2016-07-24] MEDS ORDERED: VITAMIN A & D 5 GM OINT PACKET TOP ONE (12:54)
--- NOTE | 2016-07-24 14:03 | PN ---
Date/Time of Note Date/Time of Note DATE: 07/24/16 TIME: 13:58 Assessment/Plan VTE Prophylaxis VTE Prophylaxis Intervention: LMWH Lines/Catheters IV Catheter Type (from [facility]): Peripheral IV Urinary Cath still in place: No Assessment/Plan Chief Complaint/Hosp Course 1. Syncope , CVA , she is more lucid today and is responsive . 2. Fracture of left proximal humerus, ortho is seeing patient . Dr. Méndez discussed with me the various options of her care regarding the left humerus fracture. He would like to do surgery to do an open reduction and internal fixation. However I think that the patient is not stable enough at this time to undergo general anesthesia. We will continue her current management which is immobilization of the left arm. 3. Debility 4. BP is elevated . 5. Right CVA with left hemiparesis 6. Hypertension, BP is elevated today. Will restart amlodipine. 7. will start discharge planning , consider transfer to SNF/rehab , palliative care has been called and Dr. Flores is seeing the patient. 8. Her potassium and magnesium are low and are being replaced. I will order labs for tomorrow. Problems: Subjective 24 Hr Interval Summary Free Text/Dictation She is more awake today. She says that she is having some neck pain. Respiratory: no complaints Cardiovascular: no complaints Gastrointestinal: no complaints Genitourinary: no complaints Musculoskeletal: neck pain Exam/Review of Systems Vital Signs Vitals Vital Signs Date Time Temp Pulse Resp B/P Pulse Ox O2 Delivery O2 Flow Rate FiO2 07/24/16 07:09 98.3 97 18 158/78 92 Room Air Intake and Output 07/23/16 07/23/16 07/24/16 15:00 23:00 07:00 Intake Total 490 ml 1460 ml 850 ml Balance 490 ml 1460 ml 850 ml Results Result Diagram: 07/24/16 0430 07/24/16 0430 Results 24 hrs Laboratory Tests Test 07/24/16 04:30 White Blood Count 13.0 #H Red Blood Count 4.25 Hemoglobin 12.7 Hematocrit 38.6 Mean Corpuscular Volume 90.8 Mean Corpuscular Hemoglobin 29.9 Mean Corpuscular Hemoglobin Concent 32.9 Red Cell Distribution Width 12.3 Platelet Count 183 Mean Platelet Volume 9.6 Neutrophils % 87.9 H Lymphocytes % 3.5 L Monocytes % 8.0 Eosinophils % 0.0 Basophils % 0.1 Nucleated Red Blood Cells % 0.0 Neutrophils # 11.4 H Lymphocytes # 0.5 L Monocytes # 1.0 H Eosinophils # 0.0 Basophils # 0.0 Nucleated Red Blood Cells # 0.0 Sodium Level 142 Potassium Level 2.3 *L Chloride Level 103 Carbon Dioxide Level 30 Anion Gap 11 Blood Urea Nitrogen 13 Creatinine 0.53 Glucose Level 120 Calcium Level 9.4 Phosphorus Level 3.0 Magnesium Level 1.6 L Total Bilirubin 1.2 Direct Bilirubin 0.00 Indirect Bilirubin 1.2 H Aspartate Amino Transf (AST/SGOT) 49 H Alanine Aminotransferase (ALT/SGPT) 56 Alkaline Phosphatase 97 Total Protein 7.1 Albumin 4.0 Globulin 3.10 Albumin/Globulin Ratio 1.29 Medications Medications Current Medications Acetaminophen (Tylenol Tab) 650 mg Q4H PRN PO PAIN; Start 07/15/16 at 17:30 Docusate Sodium (Colace) 100 mg QHS PO Last administered on 07/23/16 20:06; Admin Dose 100 MG; Start 07/15/16 at 21:00 Azelastine HCl (Optivar 0.05% Oph) 1 drop BID BOTH EYES Last administered on 08:16; Admin Dose 1 DROP; Start 07/17/16 at 11:30 Ondansetron HCl (Zofran Inj) 4 mg Q6H PRN IV NAUSEA AND/OR VOMITING Last administered on 07/23/16 20:05; Admin Dose 4 MG; Start 07/15/16 at 17:30 Enoxaparin Sodium 40 mg 40 mg DAILY SC Last administered on 07/24/16 08:23; Admin Dose 40 MG; Start 07/18/16 at 09:30 Dextrose/Sodium Chloride (D5-NS) 1,000 ml @ 100 mls/hr Q10H IV Last administered on 07/24/16 07:07; Admin Dose 100 MLS/HR; Start 07/19/16 at 10:00 Hydromorphone HCl (Dilaudid) 0.5 mg Q3H PRN IV PAIN Last administered on 08:16; Admin Dose 0.5 MG; Start 07/20/16 at 10:00 Enalaprilat 1.25 mg 1.25 mg Q6 IV Last administered on 07/24/16 11:48; Admin Dose 1.25 MG; Start 07/22/16 at 12:00 Ciprofloxacin/ Dextrose (Cipro Ivpb) 100 ml @ 100 mls/hr Q12 IVPB Last administered on 07/24/16 08:16; Admin Dose 100 MLS/HR; Start 07/22/16 at 09:00 Pantoprazole 40 mg 40 mg DAILY@06 IV Last administered on 07/24/16 05:23; Admin Dose 40 MG; Start 07/22/16 at 09:00 Potassium Chloride (KCl 40 MEQ/250 ML NS) 250 ml @ 62.5 mls/hr ONCE IVPB ; Start 07/24/16 at 11:30; Stop 07/24/16 at 15:29 TACSO BERNAL MD Jul 24, 2016 14:03
[2016-07-24 17:29] VITALS: BP 166/79; PULSE 89; RESP 20
[2016-07-24 20:00] VITALS: BP 148/79; RESP 18
[2016-07-24] MEDS: DOCUSATE SODIUM 100 MG CAP PO SCH (20:42)
[2016-07-25] VITALS (7 sets, daily range): BP systolic 129–177; BP diastolic 69–91; PULSE 80–91; RESP 18–20
[2016-07-25] MEDS: ENALAPRILAT 1.25 MG INJ IV SCH ×5 (00:05→23:29)
[2016-07-25] MEDS: HYDROmorphONE 1 MG/ML SYG IV PRN (00:16)
[2016-07-25] MEDS: DEXTROSE 5%-0.9% NACL 1,000 ML IV SCH (05:58)
[2016-07-25] MEDS: PANTOPRAZOLE 40 MG INJ IV SCH (05:58)
[2016-07-25 07:32] LABS: ADD SCAN DIFF NO
[2016-07-25 07:35] LABS: EOSINOPHILS % 0.2 % (0.0-7.0); HEMATOCRIT 33.1 % (37.0-47.0); HEMOGLOBIN 10.7 g/dl (12.0-16.0); LYMPHOCYTES # 0.7 10^3/ul (0.8-2.9); LYMPHOCYTES % 12.5 % (15.0-51.0); MEAN CORPUSCULAR HEMOGLOBIN 29.8 pg (29.0-33.0); MEAN CORPUSCULAR HGB CONC 32.3 g/dl (32.0-37.0); MEAN CORPUSCULAR VOLUME 92.2 fl (82.0-101.0); MEAN PLATELET VOLUME 9.7 fl (7.4-10.4); MONOCYTE # 0.6 10^3/ul (0.3-0.9); MONOCYTES % 9.7 % (0.0-11.0); NEUTROPHIL # 4.5 10^3/ul (1.6-7.5); NEUTROPHILS % 77.1 % (39.0-77.0); PLATELET COUNT 188 10^3/UL (140-415); RED BLOOD COUNT 3.59 10^6/ul (4.20-5.40); RED CELL DISTRIBUTION WIDTH 12.6 % (11.5-14.5); WHITE BLOOD COUNT 5.9 10^3/ul (4.8-10.8)
[2016-07-25 08:08] LABS: CALCIUM 8.7 mg/dl (8.4-10.2); CREATININE 0.55 mg/dl (0.44-1.00)
[2016-07-25 08:20] LABS: POTASSIUM 2.4 mmol/L (3.5-5.1)
[2016-07-25] MEDS: AZELASTINE 0.05% 6 ML OPH BOTH EYES SCH ×2 (08:21→21:30)
[2016-07-25] MEDS: CIPROFLOXACIN 200 MG/D5W IVPB 100 ML IVPB SCH ×2 (08:21→21:30)
[2016-07-25] MEDS: ENOXAPARIN 40 MG/0.4 ML SYG SC SCH (08:24)
[2016-07-25] MEDS ORDERED: POTASSIUM CHLORIDE 250 ML IVPB ONE (10:00)
[2016-07-25] MEDS: ACETAMINOPHEN 325 MG TAB PO PRN (13:14)
--- NOTE | 2016-07-25 13:47 | CONS ---
Date/Time of Note Date/Time of Note DATE: 07/25/16 TIME: 13:40 Assessment/Plan Assessment/Plan Chief Complaint/Hosp Course 1. Syncope , CVA , she is more lucid today and is responsive . 2. Fracture of left proximal humerus, ortho is seeing patient . Dr. Méndez discussed with me the various options of her care regarding the left humerus fracture. He would like to do surgery to do an open reduction and internal fixation. However I think that the patient is not stable enough at this time to undergo general anesthesia. We will continue her current management which is immobilization of the left arm. 3. Debility 4. BP is elevated . 5. Right CVA with left hemiparesis 6. Hypertension, BP is elevated today. Will restart amlodipine. 7. will start discharge planning , consider transfer to SNF/rehab , palliative care has been called and Dr. Flores is seeing the patient. 8. Her potassium is low and is being replaced. I will order labs for tomorrow. 9. The nurse informs me that she is drinking boost. We will order this for her. I can then start giving her pills. Problems: Consultation Date/Type/Reason Admit Date/Time Jul 17, 2016 at 08:13 Type of Consultation: Neurology 24 HR Interval Summary Free Text/Dictation She is awake and responsive today. She is happy to see me. Constitutional: improved, no complaints Exam/Review of Systems Vital Signs Vitals Vital Signs Date Time Temp Pulse Resp B/P Pulse Ox O2 Delivery O2 Flow Rate FiO2 07/25/16 12:46 86 18 163/80 07/25/16 08:09 98.4 95 07/25/16 06:00 Room Air Intake and Output 07/24/16 07/24/16 07/25/16 15:00 23:00 07:00 Intake Total 390 ml 1000 ml 1040 ml Output Total 1100 ml 700 ml Balance 390 ml -100 ml 340 ml Exam Her left arm is in a sling. She has left sided arm and leg weakness. Constitutional: alert, frail Psych: confusion Respiratory: clear to auscultation, normal air movement Cardiovascular: regular rate and rhythm Gastrointestinal: soft Musculoskeletal: muscle weakness Results Result Diagram: 07/25/16 0655 07/25/16 0655 Results 24 hrs Laboratory Tests Test 07/25/16 06:55 White Blood Count 5.9 # Red Blood Count 3.59 L Hemoglobin 10.7 L Hematocrit 33.1 L Mean Corpuscular Volume 92.2 Mean Corpuscular Hemoglobin 29.8 Mean Corpuscular Hemoglobin Concent 32.3 Red Cell Distribution Width 12.6 Platelet Count 188 Mean Platelet Volume 9.7 Neutrophils % 77.1 H Lymphocytes % 12.5 L Monocytes % 9.7 Eosinophils % 0.2 Basophils % 0.0 Nucleated Red Blood Cells % 0.0 Neutrophils # 4.5 Lymphocytes # 0.7 L Monocytes # 0.6 Eosinophils # 0.0 Basophils # 0.0 Nucleated Red Blood Cells # 0.0 Sodium Level 141 Potassium Level 2.4 *L Chloride Level 104 Carbon Dioxide Level 32 H Anion Gap 7 L Blood Urea Nitrogen 17 Creatinine 0.55 Glucose Level 130 Calcium Level 8.7 Magnesium Level 2.0 Medications Medications Current Medications Acetaminophen (Tylenol Tab) 650 mg Q4H PRN PO PAIN Last administered on 13:14; Admin Dose 650 MG; Start 07/15/16 at 17:30 Docusate Sodium (Colace) 100 mg QHS PO Last administered on 07/24/16 20:42; Admin Dose 100 MG; Start 07/15/16 at 21:00 Azelastine HCl (Optivar 0.05% Oph) 1 drop BID BOTH EYES Last administered on 08:21; Admin Dose 1 DROP; Start 07/17/16 at 11:30 Ondansetron HCl (Zofran Inj) 4 mg Q6H PRN IV NAUSEA AND/OR VOMITING Last administered on 07/23/16 20:05; Admin Dose 4 MG; Start 07/15/16 at 17:30 Enoxaparin Sodium 40 mg 40 mg DAILY SC Last administered on 07/25/16 08:24; Admin Dose 40 MG; Start 07/18/16 at 09:30 Dextrose/Sodium Chloride (D5-NS) 1,000 ml @ 100 mls/hr Q10H IV Last administered on 07/25/16 05:58; Admin Dose 100 MLS/HR; Start 07/19/16 at 10:00 Hydromorphone HCl (Dilaudid) 0.5 mg Q3H PRN IV PAIN Last administered on 00:16; Admin Dose 0.5 MG; Start 07/20/16 at 10:00 Enalaprilat 1.25 mg 1.25 mg Q6 IV Last administered on 07/25/16 13:14; Admin Dose 1.25 MG; Start 07/22/16 at 12:00 Ciprofloxacin/ Dextrose (Cipro Ivpb) 100 ml @ 100 mls/hr Q12 IVPB Last administered on 07/25/16 08:21; Admin Dose 100 MLS/HR; Start 07/22/16 at 09:00 Pantoprazole 40 mg 40 mg DAILY@06 IV Last administered on 07/25/16 05:58; Admin Dose 40 MG; Start 07/22/16 at 09:00 Potassium Chloride (KCl 40 MEQ/250 ML NS) 250 ml @ 62.5 mls/hr ONCE ONCE IVPB Last administered on 07/25/16 09:47; Admin Dose 62.5 MLS/HR; Start 07/25/16 at 10:00; Stop 07/25/16 at 13:59 TACOS BERNAL MD Jul 25, 2016 13:47
[2016-07-25] MEDS: D5W-0.45 NACL + KCL 30 MEQ 1,000 ML IV SCH (16:34)
[2016-07-25] MEDS ORDERED: POTASSIUM CHLORIDE 20 MEQ in SOD CHLORIDE 0.9% 100 ML IVPB ONE (18:00)
[2016-07-25] MEDS: DOCUSATE SODIUM 100 MG CAP PO SCH (21:30)
[2016-07-26] MEDS: HYDROmorphONE 1 MG/ML SYG IV PRN ×2 (00:13→16:06)
[2016-07-26] MEDS: D5W-0.45 NACL + KCL 30 MEQ 1,000 ML IV SCH ×2 (02:22→15:57)
[2016-07-26 05:51] LABS: ALBUMIN 3.2 g/dl (3.3-4.9); ALBUMIN/GLOBULIN RATIO 1.1; BILIRUBIN,INDIRECT 1.3 mg/dl (0-1.1); BILIRUBIN,TOTAL 1.3 mg/dl (0.2-1.3); CREATININE 0.49 mg/dl (0.44-1.00); POTASSIUM 3.1 mmol/L (3.5-5.1); TOTAL PROTEIN 6.1 g/dl (6.1-8.1)
[2016-07-26] MEDS: PANTOPRAZOLE 40 MG INJ IV SCH (06:14)
[2016-07-26] MEDS: ENALAPRILAT 1.25 MG INJ IV SCH ×3 (06:16→17:43)
[2016-07-26 07:00] VITALS: BP 152/75; RESP 20
[2016-07-26] MEDS: CIPROFLOXACIN 200 MG/D5W IVPB 100 ML IVPB SCH ×2 (08:32→22:06)
[2016-07-26] MEDS: AZELASTINE 0.05% 6 ML OPH BOTH EYES SCH ×2 (08:32→22:07)
[2016-07-26] MEDS: ENOXAPARIN 40 MG/0.4 ML SYG SC SCH (08:37)
--- NOTE | 2016-07-26 08:50 | PN ---
Date/Time of Note Date/Time of Note DATE: 07/26/16 TIME: 08:40 Assessment/Plan VTE Prophylaxis VTE Prophylaxis Intervention: LMWH Lines/Catheters IV C[facility]ter Type (from [facility]): Peripheral IV Urinary Cath still in place: Yes Reason Cath still needed: urinary retention Assessment/Plan Chief Complaint/Hosp Course 1. Syncope , CVA , she is more lucid today and is responsive . She is not eating which is a major problem. I did speak to her friend Kristin who is acting as her next of kin and she would prefer that we do not put in a feeding tube etc. We decided not to place a feeding tube at this time in view of the patient's overall poor condition. I was able to speak to the patient today about having a gastric feeding tube placed and she refuses. 2. Fracture of left proximal humerus, ortho is seeing patient . Dr. Méndez discussed with me the various options of her care regarding the left humerus fracture. He would like to do surgery to do an open reduction and internal fixation. However I think that the patient is not stable enough at this time to undergo general anesthesia. We will continue her current management which is immobilization of the left arm. 3. Debility 4. BP is elevated . 5. Right CVA with left hemiparesis 6. Hypertension, BP is lower today. 7. will start discharge planning , consider transfer to SNF/rehab , palliative care has been called and Dr. Flores is seeing the patient. 8. Her potassium is low and is being replaced. I will order labs for tomorrow. 9. The nurse informs me that she is drinking boost. We will order this for her. I can then start giving her pills. Problems: Subjective 24 Hr Interval Summary Free Text/Dictation She is more awake today. She recognizes me and is responsive. Her potassium is still low. Constitutional: no complaints Respiratory: no complaints Cardiovascular: no complaints Neurologic: focal-weakness Exam/Review of Systems Vital Signs Vitals Vital Signs Date Time Temp Pulse Resp B/P Pulse Ox O2 Delivery O2 Flow Rate FiO2 07/26/16 07:00 97.8 67 20 152/75 98 07/25/16 23:26 Room Air Intake and Output 07/25/16 07/25/16 07/26/16 14:59 22:59 06:59 Intake Total 350 ml 890 ml 750 ml Output Total 900 ml 1250 ml Balance 350 ml -10 ml -500 ml Exam Constitutional: alert Psych: confusion Respiratory: clear to auscultation, normal air movement Cardiovascular: regular rate and rhythm Gastrointestinal: soft Musculoskeletal: nl extremities to inspection Neurological: confused, other Results Result Diagram: 07/25/16 0655 07/26/16 0425 Results 24 hrs Laboratory Tests Test 07/25/16 15:10 07/26/16 04:25 Potassium Level 2.8 *L 3.1 L Sodium Level 139 Chloride Level 101 Carbon Dioxide Level 31 Anion Gap 10 Blood Urea Nitrogen 13 Creatinine 0.49 Glucose Level 139 Calcium Level 9.0 Total Bilirubin 1.3 Direct Bilirubin 0.00 Indirect Bilirubin 1.3 H Aspartate Amino Transf (AST/SGOT) 27 Alanine Aminotransferase (ALT/SGPT) 38 Alkaline Phosphatase 75 Total Protein 6.1 # Albumin 3.2 L Globulin 2.90 Albumin/Globulin Ratio 1.10 Medications Medications Current Medications Acetaminophen (Tylenol Tab) 650 mg Q4H PRN PO PAIN Last administered on 13:14; Admin Dose 650 MG; Start 07/15/16 at 17:30 Docusate Sodium (Colace) 100 mg QHS PO Last administered on 07/25/16 21:30; Admin Dose 100 MG; Start 07/15/16 at 21:00 Azelastine HCl (Optivar 0.05% Oph) 1 drop BID BOTH EYES Last administered on 08:32; Admin Dose 1 DROP; Start 07/17/16 at 11:30 Ondansetron HCl (Zofran Inj) 4 mg Q6H PRN IV NAUSEA AND/OR VOMITING Last administered on 07/23/16 20:05; Admin Dose 4 MG; Start 07/15/16 at 17:30 Enoxaparin Sodium (Lovenox) 40 mg DAILY SC Last administered on 07/26/16 08:37 ; Admin Dose 40 MG; Start 07/18/16 at 09:30 Hydromorphone HCl (Dilaudid) 0.5 mg Q3H PRN IV PAIN Last administered on 00:13; Admin Dose 0.5 MG; Start 07/20/16 at 10:00 Enalaprilat 1.25 mg 1.25 mg Q6 IV Last administered on 07/26/16 06:16; Admin Dose 1.25 MG; Start 07/22/16 at 12:00 Ciprofloxacin/ Dextrose (Cipro Ivpb) 100 ml @ 100 mls/hr Q12 IVPB Last administered on 07/26/16 08:32; Admin Dose 100 MLS/HR; Start 07/22/16 at 09:00 Pantoprazole 40 mg 40 mg DAILY@06 IV Last administered on 07/26/16 06:14; Admin Dose 40 MG; Start 07/22/16 at 09:00 Potassium Chloride/Dextrose/ Sod Cl 1,000 ml @ 80 mls/hr [id number] IV Last administered on 07/25/16 16:34; Admin Dose 80 MLS/HR; Start 07/25/16 at 14:00 Potassium Chloride (KCl 40 MEQ/250 ML NS) 250 ml @ 62.5 mls/hr ONCE ONCE IVPB ; Start 07/26/16 at 10:00; Stop 07/26/16 at 13:59 TACOS BERNAL MD Jul 26, 2016 08:50
[2016-07-26] MEDS ORDERED: POTASSIUM CHLORIDE 250 ML IVPB ONE (10:00)
[2016-07-26] MEDS ORDERED: POTASSIUM CHLORIDE 20 MEQ in SOD CHLORIDE 0.9% 100 ML IVPB ONE (18:00)
[2016-07-26 19:33] VITALS: BP 133/64; RESP 18
[2016-07-26] MEDS: DOCUSATE SODIUM 100 MG CAP PO SCH (22:07)
[2016-07-27 00:08] VITALS: BP 137/90; PULSE 79; RESP 15
[2016-07-27] MEDS: ENALAPRILAT 1.25 MG INJ IV SCH ×5 (00:08→23:55)
[2016-07-27] MEDS: HYDROmorphONE 1 MG/ML SYG IV PRN (03:07)
[2016-07-27] MEDS: D5W-0.45 NACL + KCL 30 MEQ 1,000 ML IV SCH ×2 (03:32→18:20)
[2016-07-27 04:24] VITALS: BP 143/89; PULSE 85; RESP 18
[2016-07-27 05:40] LABS: ALBUMIN 3.5 g/dl (3.3-4.9); ALBUMIN/GLOBULIN RATIO 1.16; BILIRUBIN,INDIRECT 1.3 mg/dl (0-1.1); BILIRUBIN,TOTAL 1.3 mg/dl (0.2-1.3); CALCIUM 9.4 mg/dl (8.4-10.2); CREATININE 0.49 mg/dl (0.44-1.00); POTASSIUM 3.7 mmol/L (3.5-5.1); TOTAL PROTEIN 6.5 g/dl (6.1-8.1)
[2016-07-27] MEDS: PANTOPRAZOLE 40 MG INJ IV SCH (05:57)
[2016-07-27 08:16] VITALS: BP 159/70; RESP 20
[2016-07-27] MEDS: AZELASTINE 0.05% 6 ML OPH BOTH EYES SCH ×2 (09:40→21:00)
[2016-07-27] MEDS: CIPROFLOXACIN 200 MG/D5W IVPB 100 ML IVPB SCH ×2 (09:41→21:00)
[2016-07-27] MEDS: ENOXAPARIN 40 MG/0.4 ML SYG SC SCH (09:44)
[2016-07-27 19:25] VITALS: BP 141/72; RESP 18
--- NOTE | 2016-07-27 20:42 | PN ---
Date/Time of Note Date/Time of Note DATE: 07/27/16 TIME: 16:18 Assessment/Plan VTE Prophylaxis VTE Prophylaxis Intervention: LMWH Lines/Catheters IV Catheter Type (from Nrs): Peripheral IV Urinary Cath still in place: Yes Reason Cath still needed: pres ulcer contaminated by urine Assessment/Plan Chief Complaint/Hosp Course 1. Syncope 2. Fracture of left proximal humerus, ortho is seeing patient, no surgery for now due to her poor medical condition. 3. Debility 4. HTN. BP mild elevated 5. Right CVA with left hemiparesis 6. Hypertension, BP is lower today. 7. will start discharge planning , consider transfer to SNF/rehab , palliative care has been called and Dr. Flores is seeing the patient. Problems: Subjective 24 Hr Interval Summary Free Text/Dictation Awake responsive. Some neck and LUE pain. Exam/Review of Systems Vital Signs Vitals Vital Signs Date Time Temp Pulse Resp B/P Pulse Ox O2 Delivery O2 Flow Rate FiO2 07/27/16 08:16 97.3 73 20 159/70 97 07/27/16 04:24 Room Air Intake and Output 07/26/16 07/26/16 07/27/16 15:00 23:00 07:00 Intake Total 480 ml 770 ml 260 ml Output Total 650 ml 450 ml Balance 480 ml 120 ml -190 ml Exam Constitutional: alert Neck: No jvd Respiratory: clear to auscultation Cardiovascular: regular rate and rhythm Gastrointestinal: non-tender, soft Extremities: No edema Results Result Diagram: 07/25/16 0655 07/27/16 0435 Results 24 hrs Laboratory Tests Test 07/27/16 04:35 Sodium Level 137 Potassium Level 3.7 Chloride Level 101 Carbon Dioxide Level 29 Anion Gap 11 Blood Urea Nitrogen 13 Creatinine 0.49 Glucose Level 115 Calcium Level 9.4 Total Bilirubin 1.3 Direct Bilirubin 0.00 Indirect Bilirubin 1.3 H Aspartate Amino Transf (AST/SGOT) 30 Alanine Aminotransferase (ALT/SGPT) 32 Alkaline Phosphatase 84 Total Protein 6.5 Albumin 3.5 Globulin 3.00 Albumin/Globulin Ratio 1.16 Medications Medications Current Medications Acetaminophen (Tylenol Tab) 650 mg Q4H PRN PO PAIN Last administered on t 13:14; Admin Dose 650 MG; Start 07/15/16 at 17:30 Docusate Sodium (Colace) 100 mg QHS PO Last administered on 07/26/16 22:07; Admin Dose 100 MG; Start 07/15/16 at 21:00 Azelastine HCl (Optivar 0.05% Oph) 1 drop BID BOTH EYES Last administered on 09:40; Admin Dose 1 DROP; Start 07/17/16 at 11:30 Ondansetron HCl (Zofran Inj) 4 mg Q6H PRN IV NAUSEA AND/OR VOMITING Last administered on 07/23/16 20:05; Admin Dose 4 MG; Start 07/15/16 at 17:30 Enoxaparin Sodium (Lovenox) 40 mg DAILY SC Last administered on 07/27/16 09:44 ; Admin Dose 40 MG; Start 07/18/16 at 09:30 Hydromorphone HCl (Dilaudid) 0.5 mg Q3H PRN IV PAIN Last administered on 03:07; Admin Dose 0.5 MG; Start 07/20/16 at 10:00 Enalaprilat 1.25 mg 1.25 mg Q6 IV Last administered on 07/27/16 13:54; Admin Dose 1.25 MG; Start 07/22/16 at 12:00 Ciprofloxacin/ Dextrose (Cipro Ivpb) 100 ml @ 100 mls/hr Q12 IVPB Last administered on 07/27/16 09:41; Admin Dose 100 MLS/HR; Start 07/22/16 at 09:00 Pantoprazole 40 mg 40 mg DAILY@06 IV Last administered on 07/27/16 05:57; Admin Dose 40 MG; Start 07/22/16 at 09:00 Potassium Chloride/Dextrose/ Sod Cl (D5-1/2ns + KCl 30 Meq) 1,000 ml @ 80 mls/ hr [id number] IV Last administered on 07/27/16 03:32; Admin Dose 80 MLS/HR; Start 07/25/16 at 14:00 BISHOP PADILLA MD Jul 27, 2016 16:22
[2016-07-27] MEDS: DOCUSATE SODIUM 100 MG CAP PO SCH (21:00)
[2016-07-27 23:52] VITALS: BP 138/63; PULSE 77
[2016-07-28] MEDS: PANTOPRAZOLE 40 MG INJ IV SCH (05:19)
[2016-07-28] MEDS: ENALAPRILAT 1.25 MG INJ IV SCH ×4 (05:20→23:47)
[2016-07-28 05:25] VITALS: BP 144/79; PULSE 86; RESP 18
[2016-07-28 08:42] VITALS: BP 141/68; RESP 14
[2016-07-28] MEDS: CIPROFLOXACIN 200 MG/D5W IVPB 100 ML IVPB SCH ×2 (08:52→21:12)
[2016-07-28] MEDS: AZELASTINE 0.05% 6 ML OPH BOTH EYES SCH ×2 (08:52→21:12)
[2016-07-28] MEDS: ENOXAPARIN 40 MG/0.4 ML SYG SC SCH (08:53)
[2016-07-28] MEDS: D5W-0.45 NACL + KCL 30 MEQ 1,000 ML IV SCH ×3 (11:10→23:19)
--- NOTE | 2016-07-28 11:15 | PN ---
Date/Time of Note Date/Time of Note DATE: 07/28/16 TIME: 11:12 Assessment/Plan VTE Prophylaxis VTE Prophylaxis Intervention: LMWH Lines/Catheters IV Catheter Type (from Nrsg): Peripheral IV Urinary Cath still in place: Yes Reason Cath still needed: pres ulcer contaminated by urine Assessment/Plan Chief Complaint/Hosp Course 1. Syncope 2. Fracture of left proximal humerus, ortho is seeing patient, no surgery for now due to her poor medical condition. 3. Debility 4. HTN. BP mild elevated 5. Right CVA with left hemiparesis 6. Hypertension, BP controlled 7. will start discharge planning , consider transfer to SNF/rehab , palliative care has been called and Dr. Flores is seeing the patient. 8. Poor oral intake. Ensure ordered 9. Constipation. Dulcolax ordered Problems: Subjective 24 Hr Interval Summary Free Text/Dictation Awake, complains of neck pain. Oral intake is poor. No BM for several days. Exam/Review of Systems Vital Signs Vitals Vital Signs Date Time Temp Pulse Resp B/P Pulse Ox O2 Delivery O2 Flow Rate FiO2 07/28/16 08:42 97.9 77 14 141/68 95 07/27/16 04:24 Room Air Intake and Output 07/27/16 07/27/16 07/28/16 15:00 23:00 07:00 Intake Total 100 ml 1340 ml 820 ml Output Total 1200 ml 1200 ml Balance 100 ml 140 ml -380 ml Exam Neck: No supple Respiratory: clear to auscultation Cardiovascular: regular rate and rhythm Gastrointestinal: non-tender, soft Extremities: No edema Results Result Diagram: 07/25/16 0655 07/27/16 0435 Medications Medications Current Medications Acetaminophen (Tylenol Tab) 650 mg Q4H PRN PO PAIN Last administered on 13:14; Admin Dose 650 MG; Start 07/15/16 at 17:30 Docusate Sodium (Colace) 100 mg QHS PO Last administered on 07/27/16 21:00; Admin Dose 100 MG; Start 07/15/16 at 21:00 Azelastine HCl (Optivar 0.05% Oph) 1 drop BID BOTH EYES Last administered on 08:52; Admin Dose 1 DROP; Start 07/17/16 at 11:30 Ondansetron HCl (Zofran Inj) 4 mg Q6H PRN IV NAUSEA AND/OR VOMITING Last administered on 07/23/16 20:05; Admin Dose 4 MG; Start 07/15/16 at 17:30 Enoxaparin Sodium (Lovenox) 40 mg DAILY SC Last administered on 07/28/16 08:53 ; Admin Dose 40 MG; Start 07/18/16 at 09:30 Hydromorphone HCl (Dilaudid) 0.5 mg Q3H PRN IV PAIN Last administered on 03:07; Admin Dose 0.5 MG; Start 07/20/16 at 10:00 Enalaprilat 1.25 mg 1.25 mg Q6 IV Last administered on 07/28/16 05:20; Admin Dose 1.25 MG; Start 07/22/16 at 12:00 Ciprofloxacin/ Dextrose (Cipro Ivpb) 100 ml @ 100 mls/hr Q12 IVPB Last administered on 07/28/16 08:52; Admin Dose 100 MLS/HR; Start 07/22/16 at 09:00 Pantoprazole 40 mg 40 mg DAILY@06 IV Last administered on 07/28/16 05:19; Admin Dose 40 MG; Start 07/22/16 at 09:00 Potassium Chloride/Dextrose/ Sod Cl (D5-1/2ns + KCl 30 Meq) 1,000 ml @ 80 mls/ hr [id number] IV Last administered on 07/27/16 18:20; Admin Dose 80 MLS/HR; Start 07/25/16 at 14:00 BISHOP PADILLA MD Jul 28, 2016 11:15
[2016-07-28] MEDS ORDERED: BISACODYL (EC) 5 MG TAB PO PRN (11:30)
[2016-07-28 20:00] VITALS: BP 92/20; RESP 20
[2016-07-28] MEDS: DOCUSATE SODIUM 10 MG/ML (10ML CUP) PO SCH (21:12)
[2016-07-28] MEDS: HYDROmorphONE 1 MG/ML SYG IV PRN (21:14)
[2016-07-28 23:51] VITALS: BP 154/77; PULSE 88
[2016-07-29 00:51] VITALS: BP 141/67; PULSE 86; RESP 17
[2016-07-29] MEDS: PANTOPRAZOLE 40 MG INJ IV SCH (06:02)
[2016-07-29] MEDS: ENALAPRILAT 1.25 MG INJ IV SCH ×4 (06:05→23:28)
[2016-07-29 06:08] VITALS: BP 144/67; PULSE 82
[2016-07-29 08:45] VITALS: RESP 17
[2016-07-29] MEDS: AZELASTINE 0.05% 6 ML OPH BOTH EYES SCH ×2 (09:43→20:36)
[2016-07-29] MEDS: ENOXAPARIN 40 MG/0.4 ML SYG SC SCH (09:45)
[2016-07-29] MEDS: CIPROFLOXACIN 200 MG/D5W IVPB 100 ML IVPB SCH (09:46)
--- NOTE | 2016-07-29 15:35 | PN ---
Date/Time of Note Date/Time of Note DATE: 07/29/16 TIME: 15:26 Assessment/Plan VTE Prophylaxis VTE Prophylaxis Intervention: LMWH Lines/Catheters IV C[facility]ter Type (from [facility]): Peripheral IV Urinary Cath still in place: Yes Reason Cath still needed: urinary retention Assessment/Plan Chief Complaint/Hosp Course 1. Syncope , CVA , she is more lucid today and is responsive . 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 She is eating however Boost was ordered but she has not been getting it . I did speak to her friend Kristin who is acting as her next of kin and she would prefer that we do not put in a feeding tube etc. We decided not to place a feeding tube at this time in view of the patient's overall poor condition. I was able to speak to the patient about having a gastric feeding tube placed and she refuses. 2. Fracture of left proximal humerus, ortho is seeing patient . Dr. Méndez discussed with me the various options of her care regarding the left humerus fracture. He would like to do surgery to do an open reduction and internal fixation. However I think that the patient is not stable enough at this time to undergo general anesthesia. We will continue her current management which is immobilization of the left arm. 3. Debility 4. BP is lower . 5. Right CVA with left hemiparesis 6. Hypertension, BP is lower today. 7. will start discharge planning , consider transfer to SNF/rehab , palliative care has been called and Dr. Flores is seeing the patient. 8. Hypokalemia , last checked and was normal . I will order labs for tomorrow. Problems: Subjective 24 Hr Interval Summary Free Text/Dictation She is more awake today . The nurses report that she is eating . Cardiovascular: no complaints Gastrointestinal: no complaints Genitourinary: no complaints Musculoskeletal: neck pain Neurologic: focal-weakness Exam/Review of Systems Vital Signs Vitals Vital Signs Date Time Temp Pulse Resp B/P Pulse Ox O2 Delivery O2 Flow Rate FiO2 07/29/16 08:45 98.4 85 17 99 07/29/16 00:51 Room Air Intake and Output 07/28/16 07/28/16 07/29/16 15:00 23:00 07:00 Intake Total 350 ml 500 ml 730 ml Output Total 600 ml Balance 350 ml 500 ml 130 ml Exam Constitutional: alert Psych: confusion Respiratory: clear to auscultation Cardiovascular: regular rate and rhythm Gastrointestinal: soft Musculoskeletal: nl extremities to inspection Results Result Diagram: 07/25/16 0655 07/27/16 0435 Medications Medications Current Medications Acetaminophen (Tylenol Tab) 650 mg Q4H PRN PO PAIN Last administered on 13:14; Admin Dose 650 MG; Start 07/15/16 at 17:30 Azelastine HCl (Optivar 0.05% Oph) 1 drop BID BOTH EYES Last administered on 09:43; Admin Dose 1 DROP; Start 07/17/16 at 11:30 Ondansetron HCl (Zofran Inj) 4 mg Q6H PRN IV NAUSEA AND/OR VOMITING Last administered on 07/23/16 20:05; Admin Dose 4 MG; Start 07/15/16 at 17:30 Enoxaparin Sodium (Lovenox) 40 mg DAILY SC Last administered on 07/29/16 09:45 ; Admin Dose 40 MG; Start 07/18/16 at 09:30 Hydromorphone HCl (Dilaudid) 0.5 mg Q3H PRN IV PAIN Last administered on 21:14; Admin Dose 0.5 MG; Start 07/20/16 at 10:00 Enalaprilat 1.25 mg 1.25 mg Q6 IV Last administered on 07/29/16 12:09; Admin Dose 1.25 MG; Start 07/22/16 at 12:00 Ciprofloxacin/ Dextrose (Cipro Ivpb) 100 ml @ 100 mls/hr Q12 IVPB Last administered on 07/29/16 09:46; Admin Dose 100 MLS/HR; Start 07/22/16 at 09:00 Pantoprazole 40 mg 40 mg DAILY@06 IV Last administered on 07/29/16 06:02; Admin Dose 40 MG; Start 07/22/16 at 09:00 Potassium Chloride/Dextrose/ Sod Cl (D5-1/2ns + KCl 30 Meq) 1,000 ml @ 80 mls/ hr [id number] IV Last administered on 07/28/16 23:19; Admin Dose 80 MLS/HR; Start 07/25/16 at 14:00 Bisacodyl (Dulcolax) 10 mg DAILY PRN PO CONSTIPATION Last administered on 18:43; Admin Dose 10 MG; Start 07/28/16 at 11:30 Docusate Sodium (Colace Liquid Cup) 100 mg HS PO Last administered on 21:12; Admin Dose 100 MG; Start 07/28/16 at 21:00 TACOS BERNAL MD Jul 29, 2016 15:35
[2016-07-29] MEDS: AMLODIPINE 5 MG TAB PO SCH (16:42)
[2016-07-29] MEDS: D5W-0.45 NACL + KCL 30 MEQ 1,000 ML IV SCH (16:42)
[2016-07-29 17:12] LABS: ALBUMIN/GLOBULIN RATIO 1.29; BILIRUBIN,INDIRECT 1.4 mg/dl (0-1.1); BILIRUBIN,TOTAL 1.4 mg/dl (0.2-1.3); CALCIUM 9.4 mg/dl (8.4-10.2); CREATININE 0.52 mg/dl (0.44-1.00); POTASSIUM 3.7 mmol/L (3.5-5.1); TOTAL PROTEIN 7.1 g/dl (6.1-8.1)
[2016-07-29 19:50] VITALS: BP 163/73; RESP 18
[2016-07-29] MEDS: DOCUSATE SODIUM 10 MG/ML (10ML CUP) PO SCH (20:35)
[2016-07-29 21:30] VITALS: BP 138/67
[2016-07-29] MEDS: HYDROmorphONE 1 MG/ML SYG IV PRN (23:28)
[2016-07-29 23:31] VITALS: BP 137/96; PULSE 96
[2016-07-30] MEDS: D5W-0.45 NACL + KCL 30 MEQ 1,000 ML IV SCH (04:08)
[2016-07-30] MEDS ORDERED: PANTOPRAZOLE (EC) 40 MG TAB PO SCH (06:00)
[2016-07-30] MEDS: ENALAPRILAT 1.25 MG INJ IV SCH (06:36)
[2016-07-30 07:25] VITALS: BP 134/79; RESP 16
[2016-07-30] MEDS: HYDROmorphONE 1 MG/ML SYG IV PRN ×3 (08:06→15:09)
[2016-07-30] MEDS: AZELASTINE 0.05% 6 ML OPH BOTH EYES SCH (11:57)
[2016-07-30] MEDS: AMLODIPINE 5 MG TAB PO SCH (11:57)
[2016-07-30] MEDS: ENOXAPARIN 40 MG/0.4 ML SYG SC SCH (11:58)
--- NOTE | 2016-07-30 13:28 | PN ---
Date/Time of Note Date/Time of Note DATE: 07/30/16 TIME: 13:20 Assessment/Plan VTE Prophylaxis VTE Prophylaxis Intervention: LMWH Lines/Catheters IV Catheter Type (from [facility]): Peripheral IV Urinary Cath still in place: Yes Reason Cath still needed: urinary retention Assessment/Plan Chief Complaint/Hosp Course 1. Syncope , CVA , she is more lucid today and is responsive . 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 She is eating food and drinking boost with assistance and encouragement . I did speak to her friend Kristin who is acting as her next of kin and she would prefer that we do not put in a feeding tube etc. We decided not to place a feeding tube at this time in view of the patient's overall poor condition. I was able to speak to the patient about having a gastric feeding tube placed and she refuses. 2. Fracture of left proximal humerus, ortho is seeing patient . Dr. Méndez discussed with me the various options of her care regarding the left humerus fracture. He would like to do surgery to do an open reduction and internal fixation. However I think that the patient is not stable enough at this time to undergo general anesthesia. We will continue her current management which is immobilization of the left arm. 3. Debility, she is essentially bedridden at this time. 4. she is tolerating her oral medication. 5. Right CVA with left hemiparesis 6. Hypertension, BP is lower today. 7. will start discharge planning , consider transfer to SNF/rehab 8. Hypokalemia , last checked and was normal . Problems: Subjective 24 Hr Interval Summary Free Text/Dictation She is eating food and drinking Boost with assistance. She is more awake and lucid today. She complains of neck pain. Cardiovascular: no complaints Gastrointestinal: no complaints Genitourinary: no complaints Musculoskeletal: no complaints Neurologic: focal-weakness Exam/Review of Systems Vital Signs Vitals Vital Signs Date Time Temp Pulse Resp B/P Pulse Ox O2 Delivery O2 Flow Rate FiO2 07/30/16 07:25 98.2 88 16 134/79 97 07/29/16 00:51 Room Air Intake and Output 07/29/16 07/29/16 07/30/16 15:00 23:00 07:00 Intake Total 560 ml 660 ml 1210 ml Output Total 1300 ml 1600 ml Balance 560 ml -640 ml -390 ml Exam Constitutional: alert Psych: confusion Respiratory: clear to auscultation, normal air movement Cardiovascular: regular rate and rhythm Gastrointestinal: soft Musculoskeletal: nl extremities to inspection Neurological: confused, focal weakness Results Result Diagram: 07/29/16 1640 Results 24 hrs Laboratory Tests Test 07/29/16 16:40 Sodium Level 133 L Potassium Level 3.7 Chloride Level 99 Carbon Dioxide Level 28 Anion Gap 10 Blood Urea Nitrogen 8 Creatinine 0.52 Glucose Level 111 Calcium Level 9.4 Total Bilirubin 1.4 H Direct Bilirubin 0.00 Indirect Bilirubin 1.4 H Aspartate Amino Transf (AST/SGOT) 37 Alanine Aminotransferase (ALT/SGPT) 38 Alkaline Phosphatase 107 Total Protein 7.1 Albumin 4.0 Globulin 3.10 Albumin/Globulin Ratio 1.29 Medications Medications Current Medications Acetaminophen (Tylenol Tab) 650 mg Q4H PRN PO PAIN Last administered on 13:14; Admin Dose 650 MG; Start 07/15/16 at 17:30 Azelastine HCl (Optivar 0.05% Oph) 1 drop BID BOTH EYES Last administered on 11:57; Admin Dose 1 DROP; Start 07/17/16 at 11:30 Ondansetron HCl (Zofran Inj) 4 mg Q6H PRN IV NAUSEA AND/OR VOMITING Last administered on 07/23/16 20:05; Admin Dose 4 MG; Start 07/15/16 at 17:30 Enoxaparin Sodium (Lovenox) 40 mg DAILY SC Last administered on 07/30/16 11:58 ; Admin Dose 40 MG; Start 07/18/16 at 09:30 Hydromorphone HCl (Dilaudid) 0.5 mg Q3H PRN IV PAIN Last administered on 11:56; Admin Dose 0.5 MG; Start 07/20/16 at 10:00 Enalaprilat 1.25 mg 1.25 mg Q6 IV Last administered on 07/30/16 06:36; Admin Dose 1.25 MG; Start 07/22/16 at 12:00 Potassium Chloride/Dextrose/ Sod Cl (D5-1/2ns + KCl 30 Meq) 1,000 ml @ 80 mls/ hr [id number] IV Last administered on 07/30/16 04:08; Admin Dose 80 MLS/HR; Start 07/25/16 at 14:00 Bisacodyl (Dulcolax) 10 mg DAILY PRN PO CONSTIPATION Last administered on 18:43; Admin Dose 10 MG; Start 07/28/16 at 11:30 Docusate Sodium (Colace Liquid Cup) 100 mg HS PO Last administered on 20:35; Admin Dose 100 MG; Start 07/28/16 at 21:00 Pantoprazole (Protonix Tab) 40 mg DAILY@06 PO Last administered on 07/30/16 06 :36; Admin Dose 40 MG; Start 07/30/16 at 06:00 Amlodipine Besylate (Norvasc) 5 mg DAILY PO Last administered on 07/30/16 11: 57; Admin Dose 5 MG; Start 07/29/16 at 16:00 TACOS BERNAL MD Jul 30, 2016 13:28
[2016-07-30] MEDS: ACETAMINOPHEN 325 MG TAB PO PRN (15:41)
--- NOTE | 2016-07-30 16:59 | PDOCDIS ---
Discharge Instructions CONDITION Patient Condition: Good HOME CARE INSTRUCTIONS: Diet Instructions: Special Diet: pureed. ACTIVITY: Bathing Restrictions: Sponge Bath FOLLOW UP/APPOINTMENTS Appointments TACOS Zarate MD Jul 30, 2016 16:59
== END 2016-07-30 18:15 | DRG 64 ==
LOC: E/R 01:35 → TEL 14:41 → OBSVTOIN 07-17 08:13 → MS1 07-20 23:41
PROVIDERS: ADMIT Internal Medicine; ATTEND Internal Medicine
DX: I63.40 Cerebral infarction due to embolism of unspecified cerebral artery (principal); G93.41 Metabolic encephalopathy; N39.0 Urinary tract infection, site not specified; G81.94 Hemiplegia, unspecified affecting left nondominant side; S42.292A Other displaced fracture of upper end of left humerus, initial encounter for closed fracture; B95.2 Enterococcus as the cause of diseases classified elsewhere; M81.0 Age-related osteoporosis without current pathological fracture; I10 Essential (primary) hypertension; E87.6 Hypokalemia; E78.5 Hyperlipidemia, unspecified; K21.9 Gastro-esophageal reflux disease without esophagitis; R53.81 Other malaise; Z66 Do not resuscitate; M15.9 Polyosteoarthritis, unspecified; W18.39XA Other fall on same level, initial encounter
CPT/HCPCS: 36415; 70450; 70551; 71010; 73030; 80048; 80053; 81001; 82962; 83735; 83970; 84100; 84132; 84155; 84300; 84484; 85025; 85610; 85730; 87086; 92526; 92610; 93005; 93306; 93880; 96360; 96361; 96372; 97110; 97162; 97166; 97530; G0378; C9113; J0744; J1170; J1650; J1815; J2270; J2405; J3475; J3480; J7030; J7040; J7042; J7070; L3980